=== PATIENT | male | born 1960 | race African-American/Black ===

== ENCOUNTER 2016-05-27 17:16 | Inpatient (IN) | payer OTHER, MEDICARE ==
[~2016-05-27] VITALS: Ht 190.5 cm; Wt 90.0 kg
[~2016-05-27 17:16] MED LIST: AMLO10TA2 PO; ASPI325T PO; ATOR10TA15 PO; BETH25 PO; CALC667C; CARV3.12 PO; COZA50TA PO; EPOG1000 IV; FURO40TA PO; NOVORP2 SQ; [UNRECOGNIZED DRUG - CODE] IV
[2016-05-27 17:18] VITALS: BP 113/71; PULSE 132; RESP 12; TEMP 98.1; O2SAT 97
--- NOTE | 2016-05-27 19:35 | PD ---
HPI Chief Complaint: Wound/Suture/Staple Re-Check Time Seen by Provider: 19:35 Travel History International Travel<30 days: No Contact w/Intl Traveler<30days: No Traveled to known affect area: No History of Present Illness HPI 56-year-old male with history of CAD, hypertension, diabetes, ESRD on dialysis presents to emergency department for evaluation of possible infection. Patient has the toes of his right foot amputated. He also has a left BKA. States he has been dealing with a wound on the right foot for extended amount of time. Health care nurse comes and sees it. He believes that it is getting better. Today during dialysis he states that he started feeling febrile and chilled. He states the nurse looked in his foot and felt that he may be septic from the infection on his foot. Patient denies chest pain or tightness. He has had no other recent illnesses, fever, or chills. Has no other symptoms to report at this time. PFSH Past Medical History Hx Anticoagulant Therapy: Yes Arthritis: No Asthma: No Autoimmune Disease: No Blood Disorders: No Anxiety: No Depression: No Heart Rhythm Problems: No Cancer: No Cardiovascular Problems: Yes High Cholesterol: Yes Chemotherapy: No Chest Pain: No Congestive Heart Failure: No COPD: No Cerebrovascular Accident: No Dementia: No Diabetes: Yes Diminished Hearing: No Endocrine: Yes Gastrointestinal Disorders: Yes (CONSTIPATION RELATED TO MEDICATION) GERD: No Glaucoma: No Genitourinary: Yes Headaches: Yes Hepatitis: No Hiatal Hernia: No Hypertension: Yes Immune Disorder: No Implanted Vascular Access Dvce: Yes (dialysis port) Kidney Stones: No Musculoskeletal: No Neurologic: No Psychiatric: No Reproductive: No Respiratory: No Immunizations Current: No Migraines: No Myocardial Infarction: No Radiation Therapy: No Renal Failure: No Seizures: No Sickle Cell Disease: No Sleep Apnea: No Thyroid Disease: No Ulcer: No Past Surgical History Abdominal Surgery: No AICD: No Appendectomy: No Arteriovenous Shunt: No Body Medical Devices: VASCATH Cardiac Surgery: No Cholecystectomy: No Ear Surgery: No Endocrine Surgery: No Eye Surgery: Yes (LEFT AND RIGHT LENS IMPLANTS [id number] PATIENT NOT SURE) Genitourinary Surgery: No Gynecologic Surgery: No Insulin Pump: No Joint Replacement: No Oral Surgery: No Pacemaker: No Thoracic Surgery: No Other Surgery: Yes (vein reconstruction left leg) Social History Alcohol Use: No Tobacco Use: No Substance Use: No Allergies-Medications (Allergen,Severity, Reaction): Coded Allergies: *MDRO Multi-Drug Resistant Organism (Verified Adverse Reaction, Unknown, ) MRSA PCR Screens NEGATIVE - 08/23/15 and 08/26/15 CLEARED PER INFECTION CONTROL Uncoded Allergies: Tradjenta (Adverse Reaction, Severe, Burning, 08/30/15) Pt reports that after taking the medication for 2-3 days he developed severe and pain full blisters on both lower legs. Reported Meds & Prescriptions Reported Meds & Active Scripts Active Reported Aspirin 325 Mg Tab 325 Mg PO DAILY Atorvastatin (Atorvastatin Calcium) 10 Mg Tab 10 Mg PO HS Calcium Acetate (Calcium Acetate (Phosphate Bin) 667 Mg Cap 667 Mg TID Cefazolin Inj (Cefazolin Sodium) 2 Gm/100 Ml Bagp Gm IV DAILY PRN Epogen Inj (Epoetin Dorian) 10,000 Unit/Ml Inj 10,000 IV Furosemide 40 Mg Tab 40 Mg PO DAILY Novolin R Inj (Insulin Human Regular) 1,000 Unit/10 Ml Vial 1-9 Units SQ TIDACHS Max dose at bedtime:( )units; sugars less than 70,(0) units; sugars 150-199,(1)unit; sugars 200-249,(3)units; sugars 250-299,(5) units; sugars 300-349,(7)units; sugars greater than 349,(9)units Urecholine (Bethanechol Chloride) 25 Mg Tab 25 Mg PO Q8HR Review of Systems Except as stated in HPI: all other systems reviewed are Neg Physical Exam Narrative GENERAL: Well-nourished male patient in no acute distress SKIN: Warm and dry. Multiple healed wounds on the lower extremity. On the plantar surface of the right foot there is a 3 cm in diameter hardened calloused. On the dorsal aspect of the foot there is a 1 m diameter wound with a small amount of purulent drainage. HEAD: Atraumatic. Normocephalic. EYES: Pupils equal and round. No scleral icterus. No injection or drainage. ENT: No nasal bleeding or discharge. Mucous membranes pink and moist. NECK: Trachea midline. No JVD. CARDIOVASCULAR: Tachycardic rate and rhythm. RESPIRATORY: No accessory muscle use. Clear to auscultation. Breath sounds equal bilaterally. GASTROINTESTINAL: Abdomen soft, non-tender, nondistended. Hepatic and splenic margins not palpable. MUSCULOSKELETAL: No obvious deformities. No clubbing. No cyanosis. No edema. Left BKA, right toes all amputated NEUROLOGICAL: Awake and alert. No obvious cranial nerve deficits. Motor grossly within normal limits. Normal speech. PSYCHIATRIC: Appropriate mood and affect; insight and judgment normal. Data Data Last Documented VS Vital Signs Date Time Temp Pulse Resp B/P Pulse Ox O2 Delivery O2 Flow Rate FiO2 05/27/16 22:20 93 16 127/71 97 05/27/16 17:18 98.1 Room Air Orders Electrocardiogram (05/27/16 19:33) Complete Blood Count With Diff (05/27/16 19:33) Comprehensive Metabolic Panel (05/27/16 19:33) Prothrombin Time / Inr (Pt) (05/27/16 19:33) Act Partial Throm Time (Ptt) (05/27/16 19:33) Lactic Acid Sepsis Protocol (05/27/16 19:33) Ckmb (Isoenzyme) Profile (05/27/16 19:33) Troponin I (05/27/16 19:33) Urinalysis - C+S If Indicated (05/27/16 19:33) Blood Culture (05/27/16 19:33) Chest, Single Ap (05/27/16 19:33) Foot, Complete ([id number]) (05/27/16 ) Wound Culture And Gram Stain (05/27/16 22:01) Piperacil-Tazo 3.375 Gm Premix (Zosyn 3. (05/27/16 22:15) Vancomycin Inj (Vancomycin Inj) (05/27/16 22:15) Sodium Chlor 0.9% 250 Ml Inj (Ns 250 Ml (05/27/16 23:00) Admit Order (Ed Use Only) (05/27/16 23:26) Labs Laboratory Tests Test 05/27/16 05/27/16 19:55 22:15 White Blood Count 10.1 TH/MM3 Red Blood Count 4.22 MIL/MM3 Hemoglobin 11.8 GM/DL Hematocrit 35.7 % Mean Corpuscular Volume 84.7 FL Mean Corpuscular Hemoglobin 27.9 PG Mean Corpuscular Hemoglobin 32.9 % Concent Red Cell Distribution Width 17.9 % Platelet Count 201 TH/MM3 Mean Platelet Volume 8.9 FL Neutrophils (%) (Auto) 88.7 % Lymphocytes (%) (Auto) 5.9 % Monocytes (%) (Auto) 5.1 % Eosinophils (%) (Auto) 0.1 % Basophils (%) (Auto) 0.2 % Neutrophils # (Auto) 8.9 TH/MM3 Lymphocytes # (Auto) 0.6 TH/MM3 Monocytes # (Auto) 0.5 TH/MM3 Eosinophils # (Auto) 0.0 TH/MM3 Basophils # (Auto) 0.0 TH/MM3 CBC Comment DIFF FINAL Differential Comment Prothrombin Time 12.0 SEC Prothromb Time International 1.1 RATIO Ratio Activated Partial 31.2 SEC Thromboplast Time Sodium Level 134 MEQ/L Potassium Level 4.1 MEQ/L Chloride Level 95 MEQ/L Carbon Dioxide Level 25.6 MEQ/L Anion Gap 13 MEQ/L Blood Urea Nitrogen 38 MG/DL Creatinine 7.26 MG/DL Estimat Glomerular Filtration 9 ML/MIN Rate Random Glucose 297 MG/DL Lactic Acid Level 3.8 mmol/L 3.9 mmol/L Calcium Level 9.1 MG/DL Total Bilirubin 0.3 MG/DL Aspartate Amino Transf 7 U/L (AST/SGOT) Alanine Aminotransferase 15 U/L (ALT/SGPT) Alkaline Phosphatase 145 U/L Total Creatine Kinase 61 U/L Troponin I 0.07 NG/ML Total Protein 8.6 GM/DL Albumin 3.1 GM/DL [facility] Medical Decision Making Medical Screen Exam Complete: Yes Emergency Medical Condition: Yes Medical Record Reviewed: Yes Differential Diagnosis Sepsis versus influenza versus electrolyte abnormality versus infected wound Narrative Course 56-year-old male presents to [facility] department for evaluation. Workup is initiated in triage. Once a medical bed becomes available, patient will be transferred and care assumed by that provider. Condition: Stable [place] Rubio May 27, 2016 19:35
[2016-05-27 20:12] LABS: AUTOMATED NEUTROPHIL # 8.9 TH/MM3 (1.8-7.7); BASOPHIL % 0.2 % (0.0-2.0); EOSINOPHIL % 0.1 % (0.0-4.0); HEMATOCRIT 35.7 % (39.0-51.0); HEMO FLAGS DIFF FINAL; LYMPH % 5.9 % (9.0-44.0); LYMPHOCYTE # 0.6 TH/MM3 (1.0-4.8); MEAN CELL VOLUME 84.7 FL (80.0-100.0); MEAN CORPUSCULAR HEMOGLOBIN 27.9 PG (27.0-34.0); MEAN CORPUSCULAR HGB CONC 32.9 % (32.0-36.0); MONO % 5.1 % (0.0-8.0); NEUT % 88.7 % (16.0-70.0); PLATELET COUNT 201 TH/MM3 (150-450); RED BLOOD COUNT 4.22 MIL/MM3 (4.50-5.90); RED CELL DISTRIBUTION WIDTH 17.9 % (11.6-17.2); WHITE BLOOD COUNT 10.1 TH/MM3 (4.0-11.0)
--- NOTE | 2016-05-27 20:19 | RADRPT ---
EXAM DATE/TIME: 05/27/2016 20:15 [facility] COMPARISON: CHEST SINGLE AP, April 25, 2016, 6:16. INDICATIONS : Fever for the past few days. Possible infection of foot. MEDICAL HISTORY : Diabetes mellitus type II. Osteomyelitis, Sepsis, Cellulitis, Renal failure. SURGICAL HISTORY : Vas-cath. ENCOUNTER: Initial ACUITY: 2 days PAIN SCORE: 0/10 LOCATION: Bilateral chest FINDINGS: A single view of the chest demonstrates the lungs to be symmetrically aerated without evidence of mas s, infiltrate or effusion. The cardiomediastinal contours are unremarkable. There is a double lumen catheter in place from the right internal jugular approach with the tip overlying the right atrium. O sseous structures are intact. CONCLUSION: No acute disease. Chad Bajwa MD on May 27, 2016 at 20:17 Board Certified Radiologist. This report was verified electronically.
--- NOTE | 2016-05-27 20:24 | RADRPT ---
EXAM DATE/TIME: 05/27/2016 20:17 [facility] COMPARISON: No previous studies available for comparison. INDICATIONS : Right foot pain. Possible infection. MEDICAL HISTORY : Diabetes mellitus type II. SURGICAL HISTORY : Right amputation. ENCOUNTER: Initial ACUITY: 2 days PAIN SCORE: 5/10 LOCATION: Right Foot. FINDINGS: Three view examination of the right foot demonstrates postoperative change from a midfoot amputation. The bones are osteopenic. There is hypertrophic change at the plantar aponeurosis attachment site at the inferior calcaneus. No focal areas of bony destruction or acute periosteal reaction are seen. CONCLUSION: Disuse osteopenia following midfoot amputation. Chad Bajwa MD on May 27, 2016 at 20:20 Board Certified Radiologist. This report was verified electronically.
[2016-05-27 20:40] LABS: ANION GAP 13 MEQ/L (5-15); AST (GOT) 7 U/L (15-37); BICARBONATE 25.6 MEQ/L (21.0-32.0); BLOOD UREA NITROGEN 38 MG/DL (7-18); CHLORIDE 95 MEQ/L (98-107); GLOMERULAR FILTRATION RATE 9 ML/MIN (>89); POTASSIUM 4.1 MEQ/L (3.5-5.1); SODIUM (NA) 134 MEQ/L (136-145)
[2016-05-27 20:45] LABS: ALKALINE PHOSPHATASE 145 U/L (45-117); ALT (GPT) 15 U/L (12-78); TOTAL BILIRUBIN ADULT 0.3 MG/DL (0.2-1.0)
[2016-05-27 20:47] LABS: CREATINE KINASE 61 U/L (39-308)
[2016-05-27 20:48] LABS: APTT (PATIENT) 31.2 SEC (24.3-30.1); INTERNATIONAL NORMALIZED RATIO 1.1 RATIO
[2016-05-27 21:59] LABS: LACTIC ACID GHOST NOT REPORTABLE
--- NOTE | 2016-05-27 22:10 | PD ---
Physical Exam Narrative General: The patient is a well-developed well-nourished male in no acute distress. Head and Neck exam: Head is normocephalic atraumatic. Eyes: Pupils are equal round and reactive to light. Nose: Midline septum with pink mucous membranes Mouth: Dentition unremarkable. Moist mucus membranes. Posterior oropharynx is not erythematous. No tonsillar hypertrophy. Uvula midline. Airway patent. Neck: No palpable lymphadenopathy. No nuchal rigidity. No thyromegaly. Cardiovascular: Regular rate and rhythm without murmurs, gallops, or rubs. No pulse deficit to the extremities. Lungs: Clear to auscultation bilaterally. No wheezes, rhonchi, or rales. Abdomen: Soft, without tenderness to palpation in all 4 quadrants of the abdomen. No guarding, rebound, or rigidity. Normal bowel sounds are audible. Extremities: No clubbing, cyanosis, or edema. 2+ pulses in bilateral upper extremities. On examination the patient has a brace in place on the right leg. The brace was removed, his she was removed. The patient is noted to have a forefoot amputation that he reports occurred at 2009. The area of drainage is on the dorsal aspect of the foot. There is a yellow drainage that is able to be expressed. This was cultured. There is some tenderness surrounding this area with minimal erythema and edema. The patient on the sole of the foot is also noted to have an area of callus formation. There is no drainage from that site. The patient's left leg is noted to have a [id number] amputation. The stump appears to be in good repair without any drainage or wound. No tenderness on palpation. Back: No spinous process tenderness to palpation. No costovertebral angle tenderness to palpation. Neurologic Exam: Grossly nonfocal. Data Data Last Documented VS Vital Signs Date Time Temp Pulse Resp B/P Pulse Ox O2 Delivery O2 Flow Rate FiO2 05/27/16 22:20 93 16 127/71 97 05/27/16 17:18 98.1 Room Air Orders Electrocardiogram (05/27/16 19:33) Complete Blood Count With Diff (05/27/16 19:33) Comprehensive Metabolic Panel (05/27/16 19:33) Prothrombin Time / Inr (Pt) (05/27/16 19:33) Act Partial Throm Time (Ptt) (05/27/16 19:33) Lactic Acid Sepsis Protocol (05/27/16 19:33) Ckmb (Isoenzyme) Profile (05/27/16 19:33) Troponin I (05/27/16 19:33) Urinalysis - C+S If Indicated (05/27/16 19:33) Blood Culture (05/27/16 19:33) Chest, Single Ap (05/27/16 19:33) Foot, Complete ([id number]) (05/27/16 ) Wound Culture And Gram Stain (05/27/16 22:01) Piperacil-Tazo 3.375 Gm Premix (Zosyn 3. (05/27/16 22:15) Vancomycin Inj (Vancomycin Inj) (05/27/16 22:15) Sodium Chlor 0.9% 250 Ml Inj (Ns 250 Ml (05/27/16 23:00) Admit Order (Ed Use Only) (05/27/16 23:26) Labs Laboratory Tests Test 05/27/16 05/27/16 19:55 22:15 White Blood Count 10.1 TH/MM3 Red Blood Count 4.22 MIL/MM3 Hemoglobin 11.8 GM/DL Hematocrit 35.7 % Mean Corpuscular Volume 84.7 FL Mean Corpuscular Hemoglobin 27.9 PG Mean Corpuscular Hemoglobin 32.9 % Concent Red Cell Distribution Width 17.9 % Platelet Count 201 TH/MM3 Mean Platelet Volume 8.9 FL Neutrophils (%) (Auto) 88.7 % Lymphocytes (%) (Auto) 5.9 % Monocytes (%) (Auto) 5.1 % Eosinophils (%) (Auto) 0.1 % Basophils (%) (Auto) 0.2 % Neutrophils # (Auto) 8.9 TH/MM3 Lymphocytes # (Auto) 0.6 TH/MM3 Monocytes # (Auto) 0.5 TH/MM3 Eosinophils # (Auto) 0.0 TH/MM3 Basophils # (Auto) 0.0 TH/MM3 CBC Comment DIFF FINAL Differential Comment Prothrombin Time 12.0 SEC Prothromb Time International 1.1 RATIO Ratio Activated Partial 31.2 SEC Thromboplast Time Sodium Level 134 MEQ/L Potassium Level 4.1 MEQ/L Chloride Level 95 MEQ/L Carbon Dioxide Level 25.6 MEQ/L Anion Gap 13 MEQ/L Blood Urea Nitrogen 38 MG/DL Creatinine 7.26 MG/DL Estimat Glomerular Filtration 9 ML/MIN Rate Random Glucose 297 MG/DL Lactic Acid Level 3.8 mmol/L 3.9 mmol/L Calcium Level 9.1 MG/DL Total Bilirubin 0.3 MG/DL Aspartate Amino Transf 7 U/L (AST/SGOT) Alanine Aminotransferase 15 U/L (ALT/SGPT) Alkaline Phosphatase 145 U/L Total Creatine Kinase 61 U/L Troponin I 0.07 NG/ML Total Protein 8.6 GM/DL Albumin 3.1 GM/DL [facility] Medical Record Reviewed: Yes Supervised Visit with [place]: No Interpretation(s) Last Impressions Chest X-Ray 05/27/16 1933 Signed Impressions: Service Date/Time: Friday, May 27, 2016 20:15 - CONCLUSION: No acute disease. Chad Bajwa MD Foot X-Ray 05/27/16 0000 Signed Impressions: Service Date/Time: Friday, May 27, 2016 20:17 - CONCLUSION: Disuse osteopenia following midfoot amputation. Chad Bajwa MD Narrative Course During the course of the patients emergency department visit, the patients history, examination, and differential diagnosis were reviewed with the patient. The patient had IV access obtained and blood work sent for analysis. The patient was placed on a credit reporting clerk with oximetry and blood pressure monitoring. An EKG was done on arrival back to the room. The patient has a sinus rhythm of 99, marked right axis deviation, right bundle branch block. The patient prior to arriving back in the emergency department room was evaluated out in triage by [place], the nurse practitioner. Please see her complete history and physical. A workup was started for possible sepsis as the patient had subjective fever, chills at his usual hemodialysis session with new onset of purulent drainage from her right foot wound. The patient was provided Zosyn and vancomycin. The patient was given 250 mL IV fluid bolus. The patient was judiciously hydrated given his history of renal failure, on hemodialysis. The patients laboratory studies were reviewed and remarkable for a white count of 10.1, hemoglobin 11.8, platelets 201 with 88.7 neutrophils, lymphocytes 5.9. , CMP is remarkable for sodium of 134, chloride 95, BUN 38, creatinine 7.26, glucose 297 with a lactic acid of 3.8, ALT 15, AST 7, alkaline phosphatase 145, CPK 61, troponin I 0.07-elevation is likely related to renal insufficiency. PT 12, PTT 31.2 Radiology studies were reviewed and remarkable for a chest x-ray that shows no acute cardiopulmonary disease. A foot x-ray shows disuse osteopenia hollowing midfoot amputation. The patients results were discussed with the patient, including the plan of care. I explained that further testing and/ or monitoring is indicated based on the patients history, examination, and/ or laboratory findings. Therefore, I recommended admission for additional evaluation. The patient expressed understanding and was agreeable with this plan. The patient was admitted to the hospital in stable condition and [facility] Sepsis Criteria SIRS Criteria (2 or more): Heart rate over 90 Physician Communication Physician Communication The patient's case was discussed with Dr. Mckee who did agree to admit the patient for further evaluation and treatment at this time. Diagnosis Primary Impression: Wound infection Admitting Information Admitting Physician Requests: Observation Condition: Stable Ruby Falcon MD May 27, 2016 22:10
[2016-05-27] MEDS ORDERED: PIPERACIL-TAZO 3.375 GM PREMIX 50 ML IV ONE (22:15)
[2016-05-27] MEDS ORDERED: VANCOMYCIN INJ 1,000 MG in SODIUM CHLOR 0.9% 250 ML INJ 250 ML IV ONE (22:15)
[2016-05-27 22:20] VITALS: BP 127/71; PULSE 93; RESP 16; O2SAT 97
[2016-05-27] MEDS ORDERED: SODIUM CHLOR 0.9% 250 ML INJ 250 ML IV ONE (23:00)
[2016-05-27] MEDS ORDERED: DEXTROSE 50% IN WATER 50 ML VIAL(D50) IV PUSH PRN (23:30)
[2016-05-27] MEDS ORDERED: SODIUM CHLORIDE 0.9% FLUSH 5 ML FLUSH FLUSH PRN (23:30)
[2016-05-27] MEDS ORDERED: NALOXONE HCL 0.4 MG/ML AMP IV PRN (23:30)
[2016-05-27] MEDS ORDERED: GLUCAGON 1 MG/ML VIAL OTHER PRN (23:30)
[2016-05-27] MEDS ORDERED: CALCIUM ACETATE 667 MG CAP PO ONE (23:45)
[2016-05-28] VITALS (11 sets, daily range): BP systolic 100–135; BP diastolic 51–62; PULSE 68–84; RESP 14–22; TEMP 97.9–98.1; O2SAT 95–98
--- NOTE | 2016-05-28 01:55 | HHI.HP ---
[facility]Staff Admission Diagnosis right foot infection Diagnoses: Chief Complaint: right food drainage Travel History International Travel<30 Days: No Contact w/Intl Traveler <30 Da: No Traveled to Known Affected Are: No History of Present Illness History taken from patient and ED physician. 56-year-old male with a history of diabetes, hypertension, end-stage renal disease, PVD and CAD was sent to the ED from Dialysis for evaluation of a right foot wound infection. Patient states he was at dialysis today and he began to have fevers and chills. He has been seeing a wound care nurse for the wound on top on his right foot from a partial foot amputation. He is now having foul smelling drainage from the top of the right foot, cultures have been sent. He denies any chest pain, sob, nausea or vomiting. Review of Systems Constitutional: COMPLAINS OF: Fever, Chills Respiratory: DENIES: Sputum production, Shortness of breath Cardiovascular: DENIES: Chest pain, Lower Extremity Edema, Orthopnea Gastrointestinal: DENIES: Abdominal pain, Constipation, Diarrhea, Nausea, Vomiting Genitourinary: DENIES: Hematuria, Dysuria Musculoskeletal: DENIES: Joint pain, Back pain, Neck pain Integumentary: DENIES: Rash Hematologic/lymphatic: DENIES: Lymphadenopathy Immunologic/allergic: DENIES: Urticaria Neurologic: DENIES: Headache Other wound drainage from top of right foot Past Family Social History Past Medical History Hypertension DM PAD coronary artery disease congestive heart failure End-stage renal disease on hemodialysis Past Surgical History LBKA Amputated right toes left and right lens implants and bilateral eyes Implanted vascular device for hemodialysis Right AV fistula Reported Medications Reported Meds & Active Scripts Active Reported Aspirin 325 Mg Tab 325 Mg PO DAILY Atorvastatin (Atorvastatin Calcium) 10 Mg Tab 10 Mg PO HS Calcium Acetate (Calcium Acetate (Phosphate Bin) 667 Mg Cap 667 Mg TID Cefazolin Inj (Cefazolin Sodium) 2 Gm/100 Ml Bagp Gm IV DAILY PRN Epogen Inj (Epoetin Dorian) 10,000 Unit/Ml Inj 10,000 IV Furosemide 40 Mg Tab 40 Mg PO DAILY Novolin R Inj (Insulin Human Regular) 1,000 Unit/10 Ml Vial 1-9 Units SQ TIDACHS Max dose at bedtime:( )units; sugars less than 70,(0) units; sugars 150-199,(1)unit; sugars 200-249,(3)units; sugars 250-299,(5) units; sugars 300-349,(7)units; sugars greater than 349,(9)units Urecholine (Bethanechol Chloride) 25 Mg Tab 25 Mg PO Q8HR Allergies: Coded Allergies: *MDRO Multi-Drug Resistant Organism (Verified Adverse Reaction, Unknown, ) MRSA PCR Screens NEGATIVE - 08/23/15 and 08/26/15 CLEARED PER INFECTION CONTROL Uncoded Allergies: Tradjenta (Adverse Reaction, Severe, Burning, 08/30/15) Pt reports that after taking the medication for 2-3 days he developed severe and pain full blisters on both lower legs. Active Ordered Medications Current Medications Medications (Trade) Dose Ordered Sig/Maribell Route Start Time Stop Time Status Last Admin (NS Flush) 2 ml UNSCH PRN FLUSH 05/27/16 23:30 (NS Flush) 2 ml BID FLUSH 05/28/16 09:00 (Heparin Inj) 5,000 units Q8H SQ 05/28/16 09:00 (Narcan Inj) 0.4 mg UNSCH PRN IV 05/27/16 23:30 (D50w (Vial) Inj) 25 ml UNSCH PRN IV PUSH 05/27/16 23:30 Glucagon 1 mg 1 mg UNSCH PRN OTHER 05/27/16 23:30 (Zosyn 3.375 Gm Premix) 50 ml @ 100 mls/hr Q8H IV 05/28/16 08:00 Family History Patient denies any family history Social History Tobacco use: Quit September 2015 Alcohol use: Denies Illicit drug use: Denies Physical Exam Vital Signs Vital Signs Date Time Temp Pulse Resp B/P Pulse Ox O2 Delivery O2 Flow Rate FiO2 05/27/16 22:20 93 16 127/71 97 05/27/16 17:18 98.1 132 12 113/71 97 Room Air Physical Exam GENERAL: This is a well-nourished, well-developed patient, in no apparent distress. SKIN: Dime size wound to top of right foot with foul smelling drainage. HEAD: Atraumatic. Normocephalic. EYES: Pupils equal round and reactive. ENT: Nose without bleeding, purulent drainage or septal hematoma. Airway patent. NECK: Trachea midline. No JVD CARDIOVASCULAR: Regular rate and rhythm without murmurs, gallops, or rubs. RESPIRATORY: Clear to auscultation. Breath sounds equal bilaterally. No wheezes , rales, or rhonchi. GASTROINTESTINAL: Abdomen soft, non-tender, nondistended. No hepato-splenomegaly , or palpable masses. No guarding. MUSCULOSKELETAL: Extremities without clubbing, cyanosis, or edema. No joint tenderness, effusion, or edema noted. No calf tenderness. NEUROLOGICAL: Awake and alert. Motor and sensory grossly within normal limits. Normal speech. Laboratory Laboratory Tests Test 05/27/16 05/27/16 19:55 22:15 White Blood Count 10.1 Red Blood Count 4.22 Hemoglobin 11.8 Hematocrit 35.7 Mean Corpuscular Volume 84.7 Mean Corpuscular Hemoglobin 27.9 Mean Corpuscular Hemoglobin 32.9 Concent Red Cell Distribution Width 17.9 Platelet Count 201 Mean Platelet Volume 8.9 Neutrophils (%) (Auto) 88.7 Lymphocytes (%) (Auto) 5.9 Monocytes (%) (Auto) 5.1 Eosinophils (%) (Auto) 0.1 Basophils (%) (Auto) 0.2 Neutrophils # (Auto) 8.9 Lymphocytes # (Auto) 0.6 Monocytes # (Auto) 0.5 Eosinophils # (Auto) 0.0 Basophils # (Auto) 0.0 CBC Comment DIFF FINAL Differential Comment Prothrombin Time 12.0 Prothromb Time International 1.1 Ratio Activated Partial 31.2 Thromboplast Time Sodium Level 134 Potassium Level 4.1 Chloride Level 95 Carbon Dioxide Level 25.6 Anion Gap 13 Blood Urea Nitrogen 38 Creatinine 7.26 Estimat Glomerular Filtration 9 Rate Random Glucose 297 Lactic Acid Level 3.8 3.9 Calcium Level 9.1 Total Bilirubin 0.3 Aspartate Amino Transf 7 (AST/SGOT) Alanine Aminotransferase 15 (ALT/SGPT) Alkaline Phosphatase 145 Total Creatine Kinase 61 Troponin I 0.07 Total Protein 8.6 Albumin 3.1 Date/Time Procedure Status Source Growth 05/27/16 22:00 Gram Stain Received Wound Foot Pending 05/27/16 22:00 Wound Culture Received Wound Foot Pending 05/27/16 19:56 Aerobic Blood Culture Received Blood Peripheral Pending 05/27/16 19:56 Anaerobic Blood Culture Received Blood Peripheral Pending Result Diagram: 05/27/16195405/27/161954 Imaging Last Impressions Chest X-Ray 05/27/161932 Signed Impressions: Service Date/Time: Friday, May 27, 2016 20:15 - CONCLUSION: No acute disease. Chad Bajwa MD Foot X-Ray 05/27/16 0000 Signed Impressions: Service Date/Time: Friday, May 27, 2016 20:17 - CONCLUSION: Disuse osteopenia following midfoot amputation. Chad Bajwa MD Assessment and Plan Problem List: (1) Wound infection ICD Code: T14.8 Status: Acute (2) DM2 (diabetes mellitus, type 2) ICD Code: E11.9 Status: Chronic (3) End-stage renal disease needing dialysis ICD Code: N18.6 Status: Acute Assessment and Plan 56-year-old male with a history of diabetes, hypertension, end-stage renal disease, PVD and CAD presented with: Wound infection, right foot Images: Foot xray shows Disuse osteopenia following midfoot amputation. -Wound and blood culture pending -Zosyn IV, vanco dosing per nephrology Diabetes type 2, chronic -Accu-Cheks AC/HS w/SSI ESRD, on dialysis -Consult nephrology DVT prophylaxis: Heparin Written by Michelle BILLY, acting as scribe for Dr. Mckee on 05/28/16 at 0335. The documentation accurately reflects the work performed [id number] and decisions made by me and the physician Dr Mckee on 05/28/16. The documentation accurately reflects the work performed [id number] by me on at 0335 Discussed Condition With Patient and ED physician Physician Certification 2 Midnight Certification Type: Admission for Inpatient Services Order for Inpatient Services The services are ordered in accordance with Medicare regulations or non- Medicare payer requirements, as applicable. In the case of services not specified as inpatient-only, they are appropriately provided as inpatient services in accordance with the 2-midnight benchmark. Estimated LOS (days): 3 days is the estimated time the patient will need to remain in the hospital, assuming treatment plan goals are met and no additional complications. Post-Hospital Plan: Home Michelle Acosta May 28, 2016 01:55 Finesse Mckee MD May 28, 2016 08:35
[2016-05-28] MEDS ORDERED: PIPERACIL-TAZO 4.5 GM PREMIX 100 ML IV SCH (04:00)
[2016-05-28 05:06] LABS: AUTOMATED NEUTROPHIL # 8.6 TH/MM3 (1.8-7.7); BASOPHIL # 0.1 TH/MM3 (0-0.2); BASOPHIL % 0.5 % (0.0-2.0); EOSINOPHIL % 0.2 % (0.0-4.0); LYMPH % 16.4 % (9.0-44.0); LYMPHOCYTE # 1.9 TH/MM3 (1.0-4.8); MEAN CELL VOLUME 85.8 FL (80.0-100.0); MEAN CORPUSCULAR HEMOGLOBIN 27.1 PG (27.0-34.0); MEAN CORPUSCULAR HGB CONC 31.6 % (32.0-36.0); MONO % 9.8 % (0.0-8.0); NEUT % 73.1 % (16.0-70.0); PLATELET COUNT 197 TH/MM3 (150-450); RED BLOOD COUNT 3.96 MIL/MM3 (4.50-5.90); RED CELL DISTRIBUTION WIDTH 18.3 % (11.6-17.2); WHITE BLOOD COUNT 11.8 TH/MM3 (4.0-11.0)
[2016-05-28 05:07] LABS: HEMO FLAGS AUTO DIFF
[2016-05-28 05:31] LABS: POTASSIUM 4.3 MEQ/L (3.5-5.1)
[2016-05-28] MEDS: INSULIN ASPART SUPPLEMENTAL SCALE SQ SCH ×4 (07:00→21:00)
[2016-05-28 07:06] LABS: KERATOCYTES OCC (NORMAL); PLATELET ESTIMATE SMEAR NORMAL (NORMAL); PLATELET MORPHOLOGY NORMAL (NORMAL); SCAN/DIFF AUTO DIFF CONFIRMED
[2016-05-28] MEDS: HEPARIN SODIUM - SQ 10,000 UNITS/ML VIAL SQ SCH ×2 (08:31→18:07)
[2016-05-28] MEDS: SODIUM CHLORIDE 0.9% FLUSH 5 ML FLUSH FLUSH SCH ×2 (08:32→21:00)
[2016-05-28] MEDS: PIPERACIL-TAZO 3.375 GM PREMIX 50 ML IV SCH ×3 (08:32→23:24)
[2016-05-28] MEDS ORDERED: SODIUM CHLOR 0.9% 1000 ML INJ 1,000 ML IV PRN ×3 (09:34)
[2016-05-28] MEDS ORDERED: HEPARIN SODIUM - IV 10,000 UNITS/10 ML VIAL IVF PRN (09:45)
[2016-05-28] MEDS ORDERED: cloNIDine HCL 0.1 MG TAB PO PRN (09:45)
[2016-05-28] MEDS ORDERED: GELATIN 12 MM/7 MM FOAM TOP PRN (09:45)
[2016-05-28] MEDS ORDERED: ONDANSETRON HCL 4 MG/2 ML VIAL IV PRN (09:45)
[2016-05-28] MEDS ORDERED: MANNITOL 12.5 GM/50 ML VIAL IV PRN (09:45)
[2016-05-28] MEDS ORDERED: GENTAMICIN SULFATE (DIALYSIS USE ONLY) 20 MG/2 ML VIAL IV PRN (09:45)
[2016-05-28] MEDS ORDERED: EPOETIN ALFA 10,000 UNITS/ML VIAL IV PRN (09:45)
[2016-05-28] MEDS ORDERED: NITROGLYCERIN 0.4 MG SL 25 TABS/BTL SL PRN (09:45)
[2016-05-28] MEDS ORDERED: HEPARIN SODIUM - IV 10,000 UNITS/10 ML VIAL PRN (09:45)
[2016-05-28] MEDS ORDERED: SODIUM CHLORIDE 0.9% FLUSH 5 ML FLUSH IVF PRN (09:45)
[2016-05-28] MEDS ORDERED: ALBUMIN HUMAN 25% 25 GM/100 ML BAGP IV PRN (09:45)
[2016-05-28] MEDS ORDERED: diphenhydrAMINE HCL 25 MG CAP PO PRN (09:45)
[2016-05-28] MEDS ORDERED: ACETAMINOPHEN 325 MG TAB PO PRN (09:45)
--- NOTE | 2016-05-28 12:11 | PD.CONS ---
HPI Service Nephrology Consult Requested By Reason for Consult ESRD on HD Primary Care Physician Non-Staff History of Present Illness This is a dialysis pt followed by Dr. Membreno. He dialyzes T-Th-Sat, had full treatment yesterday. Other PMH of HTN, DM, anemia, and CAD. He has left BKA and right midfoot amputation due to severe PVD. He has noticed wound on top of right midfoot that has had drainage and foul odor, had developed fever/chills at dialysis and was sent in. He is in no distress. Metabolic profile was unremarkable. We were consulted for renal management. (Breanne Brown) Review of Systems Constitutional: COMPLAINS OF: Fatigue, Fever, Chills Integumentary: COMPLAINS OF: Rash (Breanne Brown) Past Family Social History Allergies: Coded Allergies: *MDRO Multi-Drug Resistant Organism (Verified Adverse Reaction, Unknown, ) MRSA PCR Screens NEGATIVE - 08/23/15 and 08/26/15 CLEARED PER INFECTION CONTROL PROTOCOL Uncoded Allergies: Tradjenta (Adverse Reaction, Severe, Burning, 08/30/15) Pt reports that after taking the medication for 2-3 days he developed severe and pain full blisters on both lower legs. Past Medical History Hypertension DM PAD coronary artery disease congestive heart failure End-stage renal disease on hemodialysis Past Surgical History L BKA right midfoot amputation left and right lens implants and bilateral eyes permcath right side Right AV fistula Reported Medications Aspirin 325 Mg Tab 325 Mg PO DAILY Atorvastatin (Atorvastatin Calcium) 10 Mg Tab 10 Mg PO HS Calcium Acetate (Calcium Acetate (Phosphate Bin) 667 Mg Cap 667 Mg TID Cefazolin Inj (Cefazolin Sodium) 2 Gm/100 Ml Bagp Gm IV DAILY PRN Epogen Inj (Epoetin Dorian) 10,000 Unit/Ml Inj 10,000 IV Furosemide 40 Mg Tab 40 Mg PO DAILY Novolin R Inj (Insulin Human Regular) 1,000 Unit/10 Ml Vial 1-9 Units SQ TIDACHS Max dose at bedtime:( )units; sugars less than 70,(0) units; sugars 150-199,(1)unit; sugars 200-249,(3)units; sugars 250-299,(5) units; sugars 300-349,(7)units; sugars greater than 349,(9)units Urecholine (Bethanechol Chloride) 25 Mg Tab 25 Mg PO Active Ordered Medications Current Medications Medications (Trade) Dose Ordered Sig/Maribell Route Start Time Stop Time Status Last Admin (NS Flush) 2 ml UNSCH PRN FLUSH 05/27/16 23:30 (NS Flush) 2 ml BID FLUSH 05/28/16 09:00 05/28/16 08:32 (Heparin Inj) 5,000 units Q8H SQ 05/28/16 09:00 05/28/16 08:31 (Narcan Inj) 0.4 mg UNSCH PRN IV 05/27/16 23:30 (D50w (Vial) Inj) 25 ml UNSCH PRN IV PUSH 05/27/16 23:30 Glucagon 1 mg 1 mg UNSCH PRN OTHER 05/27/16 23:30 Piperacillin Sod/ Tazobactam Sod 50 ml @ 100 mls/hr Q8H IV 05/28/16 08:00 05/28/16 08:32 (NS 1000 ml Inj) 1,000 ml @ 0 mls/hr Q0M PRN IV 05/28/16 09:34 Heparin Sodium (Porcine) 8000 units 8,000 units UNSCH PRN IVF 05/28/16 09:45 Sodium Chloride 1,000 ml @ 200 mls/hr Q5H PRN IV 05/28/16 09:34 (NS 1000 ml Inj) 1,000 ml @ 0 mls/hr Q0M PRN IV 05/28/16 09:34 (Mannitol Inj) 12.5 gm UNSCH PRN IV 05/28/16 09:45 (Albumin 25% Inj) 25 gm UNSCH PRN IV 05/28/16 09:45 (NS Flush) 5 ml UNSCH PRN IVF 05/28/16 09:45 (Heparin Inj) UNSCH PRN .XX 05/28/16 09:45 (Gentamicin (Dialysis) Inj) 20 mg UNSCH PRN IV 05/28/16 09:45 (Zofran Inj) 4 mg UNSCH PRN IV 05/28/16 09:45 (Tylenol) 650 mg UNSCH PRN PO 05/28/16 09:45 (Benadryl) 25 mg UNSCH PRN PO 05/28/16 09:45 (Nitrostat Sl) 0.4 mg UNSCH PRN SL 05/28/16 09:45 (Catapres) 0.1 mg UNSCH PRN PO 05/28/16 09:45 (Epogen Inj) 10,000 units UNSCH PRN IV 05/28/16 09:45 (Gelfoam 12 Mm/7 Mm Top) 1 foam UNSCH PRN TOP 05/28/16 09:45 Family History No hx of renal disorders Social History , lives locally unemployed, disabled former smoker Quit September 2015 no ETOH or drug use full code (Breanne Brown) Physical Exam Vital Signs Vital Signs Date Time Temp Pulse Resp B/P Pulse Ox O2 Delivery O2 Flow Rate FiO2 05/28/16 09:00 68 16 05/28/16 08:00 68 15 115/56 95 Room Air 05/28/16 04:38 79 20 120/60 98 05/28/16 03:00 71 16 135/62 96 Room Air 05/27/16 22:20 93 16 127/71 97 05/27/16 17:18 98.1 132 12 113/71 97 Room Air Physical Exam Middle aged AAM sitting up in bed permcath right chest AVF right arm, + thrill/ bruit Lungs; clear in all silva CV: S1/S2, regular without murmurs Ext: left BKA, right midfoot; small wound top of right foot, crusted top, no drainage skin with scattered areas look like old scars Laboratory Laboratory Tests Test 05/27/16 05/27/16 05/28/16 19:55 22:15 04:39 White Blood Count 10.1 11.8 Red Blood Count 4.22 3.96 Hemoglobin 11.8 10.7 Hematocrit 35.7 34.0 Mean Corpuscular Volume 84.7 85.8 Mean Corpuscular Hemoglobin 27.9 27.1 Mean Corpuscular Hemoglobin 32.9 31.6 Concent Red Cell Distribution Width 17.9 18.3 Platelet Count 201 197 Mean Platelet Volume 8.9 8.6 Neutrophils (%) (Auto) 88.7 73.1 Lymphocytes (%) (Auto) 5.9 16.4 Monocytes (%) (Auto) 5.1 9.8 Eosinophils (%) (Auto) 0.1 0.2 Basophils (%) (Auto) 0.2 0.5 Neutrophils # (Auto) 8.9 8.6 Lymphocytes # (Auto) 0.6 1.9 Monocytes # (Auto) 0.5 1.2 Eosinophils # (Auto) 0.0 0.0 Basophils # (Auto) 0.0 0.1 CBC Comment DIFF FINAL AUTO DIFF Differential Comment AUTO DIFF CONFIRMED Prothrombin Time 12.0 Prothromb Time International 1.1 Ratio Activated Partial 31.2 Thromboplast Time Sodium Level 134 135 Potassium Level 4.1 4.3 Chloride Level 95 100 Carbon Dioxide Level 25.6 27.0 Anion Gap 13 8 Blood Urea Nitrogen 38 49 Creatinine 7.26 8.22 Estimat Glomerular Filtration 9 8 Rate Random Glucose 297 133 Lactic Acid Level 3.8 3.9 Calcium Level 9.1 9.0 Total Bilirubin 0.3 Aspartate Amino Transf 7 (AST/SGOT) Alanine Aminotransferase 15 (ALT/SGPT) Alkaline Phosphatase 145 Total Creatine Kinase 61 Troponin I 0.07 Total Protein 8.6 Albumin 3.1 Platelet Estimate NORMAL Platelet Morphology Comment NORMAL Keratocytes OCC Date/Time Procedure Status Source Growth 05/27/16 22:00 Gram Stain - Final Resulted Wound Foot 05/27/16 22:00 Wound Culture Resulted Wound Foot Pending 05/27/16 19:56 Aerobic Blood Culture - Preliminary Resulted Blood Peripheral NO GROWTH IN 1 DAY 05/27/16 19:56 Anaerobic Blood Culture - Preliminary Resulted Blood Peripheral NO GROWTH IN 1 DAY (Breanne Brown) Result Diagram: 05/28/16 0439 05/28/16 0439 Imaging Last 72 hours Impressions Chest X-Ray 05/27/16 1933 Signed Impressions: Service Date/Time: Friday, May 27, 2016 20:15 - CONCLUSION: No acute disease. Chad Bajwa MD Foot X-Ray 05/27/16 0000 Signed Impressions: Service Date/Time: Friday, May 27, 2016 20:17 - CONCLUSION: Disuse osteopenia following midfoot amputation. Chad Bajwa MD (Breanne Brown) Assessment and Plan Problem List: (1) ESRD (end stage renal disease) on dialysis Plan: he had full dialysis yesterday, no need for repeat today continue T-Th-Sat using permcath for dialysis, AVF has not been used as of yet metabolic profile tomorrow no IVF no dietary protein restriction (2) Wound infection Plan: wound cx in progress placed on zosyn (3) DM2 (diabetes mellitus, type 2) Plan: maintain blood sugar between 140-180 mg/dL (4) Anemia Plan: epogen with dialysis (5) Metabolic bone disease Plan: continue Phoslo, evaluate phosphorus periodically (Breanne Brown) Assessment and Plan patient was seen and examined. Agree with above assessment and plan. Dialysis will be tomorrow. Avoid Gadolinium. Monitor phosphorus. (Juan Pablo Feng MD) Problem Qualifiers (1) DM2 (diabetes mellitus, type 2): Qualified Code: E11.42 - Type 2 diabetes mellitus with diabetic polyneuropathy , with long-term current use of insulin Breanne Brown May 28, 2016 12:11 Juan Pablo Feng MD May 29, 2016 11:00
[2016-05-28] MEDS ORDERED: CALCIUM ACETATE 667 MG CAP PO SCH (13:00)
[2016-05-28] MEDS ORDERED: FUROSEMIDE 40 MG/4 ML VIAL ONE (13:06)
--- NOTE | 2016-05-28 15:53 | EKG ---
Date Performed: 05/27/2016 Time Performed: 21:53:54 PTAGE: 56 years EKG: Sinus rhythm MARKED RIGHT AXIS DEVIATION RIGHT BUNDLE BRANCH BLOCK Compared to prior tracing no significant buchanan e ABNORMAL ECG PREVIOUS TRACING : 04/25/2016 06.46 DOCTOR: Juliana Baez Interpretating Date/Time 05/28/2016 15:53:00
--- NOTE | 2016-05-28 16:55 | PD.POD.CON ---
Patient Intake Chief Complaint Possible diabetic foot ulcer right foot Consult Requested by Reason for Consult Evaluation of lesion on the plantar aspect of the right foot Primary Care Physician Non-Staff History of Present Illness Patient is a 56-year-old well known to myself male who presented with fever and sickness. Patient underwent bilateral transmetatarsal amputations by myself approximately 8-10 years ago. He did eventually developed another infection of the left lower extremity and had an amputation performed. Patient states that he developed an ulceration on the plantar aspect of the right foot and home health has been dressing the wound. Coded Allergies: *MDRO Multi-Drug Resistant Organism (Verified Adverse Reaction, Unknown, ) MRSA PCR Screens NEGATIVE - 08/23/15 and 08/26/15 CLEARED PER INFECTION CONTROL Uncoded Allergies: Tradjenta (Adverse Reaction, Severe, Burning, 08/30/15) Pt reports that after taking the medication for 2-3 days he developed severe and pain full blisters on both lower legs. Preferred Language to Discuss: Hungarian Barriers to Learning: None Teaching Method: Discussion Vital Signs Date Time Temp Pulse Resp B/P Pulse Ox O2 Delivery O2 Flow Rate FiO2 05/28/16 15:21 98.1 73 18 106/59 97 05/28/16 13:00 74 16 100/52 96 Room Air 05/28/16 12:00 68 14 102/51 97 Room Air 05/28/16 11:00 80 22 113/56 98 Room Air 05/28/16 10:52 98 21 05/28/16 10:00 68 19 109/54 98 Room Air 05/28/16 09:00 68 16 05/28/16 09:00 78 22 115/56 96 Room Air 05/28/16 08:00 68 15 115/56 95 Room Air 05/28/16 04:38 79 20 120/60 98 05/28/16 03:00 71 16 135/62 96 Room Air 05/27/16 22:20 93 16 127/71 97 05/27/16 17:18 98.1 132 12 113/71 97 Room Air Pain scale used: 0-10 numeric scale Pain score: 0 Medications Current Medications Piperacillin Sod/ Tazobactam Sod 50 ml @ 100 mls/hr ONCE ONCE IV Last administered on 05/27/16t 23:23; Start 05/27/16 at 22:15; Stop 05/27/16 at 22:44 ; Status DC Vancomycin HCl 1000 mg/Sodium Chloride 250 ml @ 250 mls/hr ONCE ONCE IV Last administered on 05/27/16 22:29; Start 05/27/16 at 22:15; Stop 05/27/16 at 23:14 ; Status DC Sodium Chloride (NS 250 ml Inj) 250 ml @ 250 mls/hr BOLUS ONCE IV Last administered on 05/27/16 23:56; Start 05/27/16 at 23:00; Stop 05/27/16 at 23:59 ; Status DC IV Flush (NS Flush) 2 ml UNSCH PRN FLUSH FLUSH AFTER USING IV ACCESS; Start at 23:30 IV Flush (NS Flush) 2 ml BID FLUSH Last administered on 05/28/16 08:32; Start 05/28/16 at 09:00 Heparin Sodium (Porcine) (Heparin Inj) 5,000 units Q8H SQ Last administered on 05/28/16 08:31; Start 05/28/16 at 09:00 Naloxone HCl (Narcan Inj) 0.4 mg UNSCH PRN IV SEE LABEL COMMENTS; Start at 23:30 Dextrose (D50w (Vial) Inj) 25 ml UNSCH PRN IV PUSH HYPOGLYCEMIA-SEE COMMENTS; Start 05/27/16 at 23:30 Glucagon (Glucagon Inj) 1 mg UNSCH PRN OTHER HYPOGLYCEMIA-SEE COMMENTS; Start 05/27/16 at 23:30 Insulin Aspart 1 1 ACHS SLIDING SCALE SQ ; Start 05/28/16 at 07:00 Piperacillin Sod/ Tazobactam Sod 100 ml @ 200 mls/hr Q6H IV ; Start 05/28/16 at 04:00; Status Cancel Piperacillin Sod/ Tazobactam Sod (Zosyn 3.375 Gm Premix) 50 ml @ 100 mls/hr Q8H IV Last administered on 05/28/16 15:43; Start 05/28/16 at 08:00 Calcium Acetate 1334 mg 1,334 mg ONCE ONCE PO ; Start 05/27/16 at 23:45; Stop 05/27/16 at 23:46; Status DC Sodium Chloride (NS 1000 ml Inj) 1,000 ml @ 0 mls/hr Q0M PRN IV For Prime & Rinse Back; Start 05/28/16 at 09:34 Heparin Sodium (Porcine) 8000 units 8,000 units UNSCH PRN IVF WITH DIALYSIS; Start 05/28/16 at 09:45 Sodium Chloride 1,000 ml @ 200 mls/hr Q5H PRN IV WITH DIALYSIS; Start 05/28/16 at 09:34 Sodium Chloride (NS 1000 ml Inj) 1,000 ml @ 0 mls/hr Q0M PRN IV WITH DIALYSIS; Start 05/28/16 at 09:34 Mannitol (Mannitol Inj) 12.5 gm UNSCH PRN IV WITH DIALYSIS; Start 05/28/16 at 09 :45 Albumin Human (Albumin 25% Inj) 25 gm UNSCH PRN IV WITH DIALYSIS; Start at 09:45 IV Flush (NS Flush) 5 ml UNSCH PRN IVF WITH DIALYSIS; Start 05/28/16 at 09:45 Heparin Sodium (Porcine) (Heparin Inj) UNSCH PRN .XX WITH DIALYSIS; Start 05/28 at 09:45 Gentamicin Sulfate (Gentamicin (Dialysis) Inj) 20 mg UNSCH PRN IV WITH DIALYSIS ; Start 05/28/16 at 09:45 Ondansetron HCl (Zofran Inj) 4 mg UNSCH PRN IV WITH DIALYSIS; Start 05/28/16 at 09:45 Acetaminophen (Tylenol) 650 mg UNSCH PRN PO for headach, pain1-10,T > 101F; Start 05/28/16 at 09:45 Diphenhydramine HCl (Benadryl) 25 mg UNSCH PRN PO for hives/itching/anaphylaxis ; Start 05/28/16 at 09:45 Nitroglycerin (Nitrostat Sl) 0.4 mg UNSCH PRN SL CHEST PAIN; Start 05/28/16 at 09:45 Clonidine (Catapres) 0.1 mg UNSCH PRN PO for BP > 180/100 X 2 readings; Start 05/28/16 at 09:45 Epoetin Dorian (Epogen Inj) 10,000 units UNSCH PRN IV WITH DIALYSIS; Start at 09:45 Gelatin (Gelfoam 12 Mm/7 Mm Top) 1 foam UNSCH PRN TOP SEE LABEL COMMENTS; Start 05/28/16 at 09:45 Calcium Acetate (Phoslo) 667 mg TID PO Last administered on 05/28/16t 13:06; Start 05/28/16 at 13:00; Stop 05/28/16 at 14:49; Status DC Furosemide (Lasix Inj) 40 mg STK-MED ONCE .ROUTE ; Start 05/28/16 at 13:06; Stop 05/28/16 at 13:07; Status DC Calcium Acetate (Phoslo) 1,334 mg TID PO ; Start 05/28/16 at 18:00 Past, Family & Social History Past Medical History Endocrine: REPORTS HX OF: Diabetes mellitus Genitourinary: REPORTS HX OF: Hemodialysis, Kidney failure Past Surgical History Musculoskeletal: REPORTS HX OF: Other musculoskeletal srg (bilateral transmetatarsal amputations) Review of Systems Constitutional: COMPLAINS OF: Fever Neurological: COMPLAINS OF: Numbness/tingling, Changes in sensation Exam-Podiatry Constitutional General appearance: comfortable Nutritional status: normal Orientation: alert and oriented x3 Dermatological Exam Skin Temp - Right: Within Normal Limits Skin Texture - Right: Within Normal Limits Skin Elasticity - Right: Within Normal Limits Skin Tugor - Right: Within Normal Limits Hair Growth - Right: Within Normal Limits Pigmentation - Right: Within Normal Limits Skin Temp - Left: Within Normal Limits Skin Texture - Left: Within Normal Limits Skin Elasticity - Left: Within Normal Limits Skin Tugor - Left: Within Normal Limits Hair Growth - Left: Within Normal Limits Pigmentation - Left: Within Normal Limits Ulcers: Location/Measurements There is an area on the plantar aspect of the right arch which appeared to be in an ulceration. It is covered with hyperkeratotic tissue. The hyperkeratotic tissue peeled off and he has a healed wound underneath. No cellulitis or drainage seen Vascular/Lymphatic Exam R Dorsails Pedis: Palpable L Dorsails Pedis: Palpable R Posterior Tibial: Palpable L Posterior Tibial: Palpable Neurologic Exam Present on right: Tingling, Paraesthesia Present on left: Tingling, Paraesthesia Sensation: Light touch: Absence Pinprick: Absence Proprioception: Absence Vibratory: Absence Monofilament exam: 1st metatarsal head: absent 5th metatarsal head: absent Great toe: absent Musculoskeletal Exam Details Below-knee amputation left, transmetatarsal amputation right foot Wound Assessment Wound Information - Wound One Wound Location: left plantar foot Wound Two Wound Location: right plantar foot Lab and Radiology Results Laboratory Laboratory Tests Test 05/27/16 05/28/16 19:55 04:39 White Blood Count 10.1 TH/MM3 11.8 TH/MM3 Red Blood Count 4.22 MIL/MM3 3.96 MIL/MM3 Hemoglobin 11.8 GM/DL 10.7 GM/DL Hematocrit 35.7 % 34.0 % Mean Corpuscular Volume 84.7 FL 85.8 FL Mean Corpuscular Hemoglobin 27.9 PG 27.1 PG Mean Corpuscular Hemoglobin 32.9 % 31.6 % Concent Red Cell Distribution Width 17.9 % 18.3 % Platelet Count 201 TH/MM3 197 TH/MM3 Mean Platelet Volume 8.9 FL 8.6 FL Neutrophils (%) (Auto) 88.7 % 73.1 % Lymphocytes (%) (Auto) 5.9 % 16.4 % Monocytes (%) (Auto) 5.1 % 9.8 % Eosinophils (%) (Auto) 0.1 % 0.2 % Basophils (%) (Auto) 0.2 % 0.5 % Neutrophils # (Auto) 8.9 TH/MM3 8.6 TH/MM3 Lymphocytes # (Auto) 0.6 TH/MM3 1.9 TH/MM3 Monocytes # (Auto) 0.5 TH/MM3 1.2 TH/MM3 Eosinophils # (Auto) 0.0 TH/MM3 0.0 TH/MM3 Basophils # (Auto) 0.0 TH/MM3 0.1 TH/MM3 CBC Comment DIFF FINAL AUTO DIFF Differential Comment AUTO DIFF CONFIRMED Platelet Estimate NORMAL Platelet Morphology Comment NORMAL Keratocytes OCC Laboratory Tests Test 05/27/16 05/27/16 05/28/16 19:55 22:15 04:39 Sodium Level 134 MEQ/L 135 MEQ/L Potassium Level 4.1 MEQ/L 4.3 MEQ/L Chloride Level 95 MEQ/L 100 MEQ/L Carbon Dioxide Level 25.6 MEQ/L 27.0 MEQ/L Anion Gap 13 MEQ/L 8 MEQ/L Blood Urea Nitrogen 38 MG/DL 49 MG/DL Creatinine 7.26 MG/DL 8.22 MG/DL Estimat Glomerular Filtration 9 ML/MIN 8 ML/MIN Rate Random Glucose 297 MG/DL 133 MG/DL Lactic Acid Level 3.8 mmol/L 3.9 mmol/L Calcium Level 9.1 MG/DL 9.0 MG/DL Total Bilirubin 0.3 MG/DL Aspartate Amino Transf 7 U/L (AST/SGOT) Alanine Aminotransferase 15 U/L (ALT/SGPT) Alkaline Phosphatase 145 U/L Total Creatine Kinase 61 U/L Troponin I 0.07 NG/ML Total Protein 8.6 GM/DL Albumin 3.1 GM/DL Microbiology Date/Time Procedure Status Source Growth 05/27/16 19:50 Aerobic Blood Culture - Preliminary Resulted Blood Peripheral NO GROWTH IN 1 DAY 05/27/16 19:50 Anaerobic Blood Culture - Preliminary Resulted Blood Peripheral NO GROWTH IN 1 DAY 05/27/16 19:56 Aerobic Blood Culture - Preliminary Resulted Blood Peripheral NO GROWTH IN 1 DAY 05/27/16 19:56 Anaerobic Blood Culture - Preliminary Resulted Blood Peripheral NO GROWTH IN 1 DAY 05/27/16 22:00 Gram Stain - Final Resulted Wound Foot 05/27/16 22:00 Wound Culture - Preliminary Resulted Wound Foot NO GROWTH IN 24 HOURS. Radiology Last Impressions Chest X-Ray 05/27/16 1933 Signed Impressions: Service Date/Time: Friday, May 27, 2016 20:15 - CONCLUSION: No acute disease. Chad Bajwa MD Foot X-Ray 05/27/16 0000 Signed Impressions: Service Date/Time: Friday, May 27, 2016 20:17 - CONCLUSION: Disuse osteopenia following midfoot amputation. Chad Bajwa MD Assessment/Plan Problem List: (1) End-stage renal disease needing dialysis Status: Chronic (2) DM2 (diabetes mellitus, type 2) Status: Chronic (3) Diabetic foot ulcer Status: Resolved Additional Plans & Procedures Patient to moisturize the area 2 times a day. He can follow with me as an outpatient when discharged. No need to follow during the course of this admission. Thank you for this consultation Problem Qualifiers (1) DM2 (diabetes mellitus, type 2): Qualified Code: E11.42 - Type 2 diabetes mellitus with diabetic polyneuropathy , with long-term current use of insulin (2) Diabetic foot ulcer: Qualified Code: E11.621 - Diabetic ulcer of right foot associated with type 2 diabetes mellitus Agapito George DPM May 28, 2016 16:55
[2016-05-28] MEDS: CALCIUM ACETATE 667 MG CAP PO SCH (18:06)
[2016-05-29] VITALS (7 sets, daily range): BP systolic 98–121; BP diastolic 55–68; PULSE 73–86; RESP 18–22; TEMP 96.7–98.6; O2SAT 96–99
[2016-05-29] MEDS: HEPARIN SODIUM - SQ 10,000 UNITS/ML VIAL SQ SCH ×3 (00:41→17:08)
[2016-05-29] MEDS: INSULIN ASPART SUPPLEMENTAL SCALE SQ SCH ×4 (05:48→21:00)
--- NOTE | 2016-05-29 08:37 | HHI.PR ---
Subjective Remarks The patient was resting comfortably in bed in awaiting dialysis. He said he felt well. He did not have any further chills. He thinks his dialysis catheter needs to come out and he needs to pursue a fistula. He requested stool softeners. Objective Vitals Vital Signs Date Time Temp Pulse Resp B/P Pulse Ox O2 Delivery O2 Flow Rate FiO2 05/29/16 08:00 97.6 75 18 118/65 98 05/29/16 06:56 21 05/29/16 04:13 98.6 74 20 113/55 97 05/29/16 00:50 97.8 73 20 100/55 97 05/28/16 19:36 97.9 84 20 105/51 97 05/28/16 15:21 98.1 73 18 106/59 97 05/28/16 13:00 74 16 100/52 96 Room Air 05/28/16 12:00 68 14 102/51 97 Room Air 05/28/16 11:00 80 22 113/56 98 Room Air 05/28/16 10:52 98 21 05/28/16 10:00 68 19 109/54 98 Room Air 05/28/16 09:00 68 16 05/28/16 09:00 78 22 115/56 96 Room Air I/O 05/28/16 05/28/16 05/28/16 05/29/16 05/29/16 05/29/16 07:00 15:00 23:00 07:00 15:00 23:00 Intake Total 240 ml Balance 240 ml Intake Oral 240 ml # Voids 1 Result Diagram: 05/28/16 0439 05/28/16 0439 Imaging Last Impressions Chest X-Ray 05/27/16 1933 Signed Impressions: Service Date/Time: Friday, May 27, 2016 20:15 - CONCLUSION: No acute disease. Chad Bajwa MD Foot X-Ray 05/27/16 0000 Signed Impressions: Service Date/Time: Friday, May 27, 2016 20:17 - CONCLUSION: Disuse osteopenia following midfoot amputation. Chad Bajwa MD Objective Remarks GENERAL: This is a well-nourished, well-developed patient, in no apparent distress. SKIN: Warm and dry. HEAD: Atraumatic. Normocephalic. EYES: Pupils equal round and reactive. ENT: Nose without bleeding, purulent drainage or septal hematoma. Airway patent. NECK: Trachea midline. No JVD CARDIOVASCULAR: Regular rate and rhythm without murmurs, gallops, or rubs. RESPIRATORY: Clear to auscultation. Breath sounds equal bilaterally. No wheezes , rales, or rhonchi. GASTROINTESTINAL: Abdomen soft, non-tender, nondistended. No hepato-splenomegaly , or palpable masses. No guarding. MUSCULOSKELETAL: Left BKA. Right foot bandaged. No lower extremity edema. NEUROLOGICAL: Awake and alert. Motor and sensory grossly within normal limits. Normal speech. PSYCH: Mood and affect appropriate. Medications and IVs Current Medications Medications (Trade) Dose Ordered Sig/Maribell Route Start Time Stop Time Status Last Admin (NS Flush) 2 ml UNSCH PRN FLUSH 05/27/16 23:30 (NS Flush) 2 ml BID FLUSH 05/28/16 09:00 05/28/16 21:00 (Heparin Inj) 5,000 units Q8H SQ 05/28/16 09:00 05/28/16 18:07 (Narcan Inj) 0.4 mg UNSCH PRN IV 05/27/16 23:30 (D50w (Vial) Inj) 25 ml UNSCH PRN IV PUSH 05/27/16 23:30 Glucagon 1 mg 1 mg UNSCH PRN OTHER 05/27/16 23:30 Piperacillin Sod/ Tazobactam Sod 50 ml @ 100 mls/hr Q8H IV 05/28/16 08:00 05/28/16 23:24 (NS 1000 ml Inj) 1,000 ml @ 0 mls/hr Q0M PRN IV 05/28/16 09:34 Heparin Sodium (Porcine) 8000 units 8,000 units UNSCH PRN IVF 05/28/16 09:45 Sodium Chloride 1,000 ml @ 200 mls/hr Q5H PRN IV 05/28/16 09:34 (NS 1000 ml Inj) 1,000 ml @ 0 mls/hr Q0M PRN IV 05/28/16 09:34 (Mannitol Inj) 12.5 gm UNSCH PRN IV 05/28/16 09:45 (Albumin 25% Inj) 25 gm UNSCH PRN IV 05/28/16 09:45 (NS Flush) 5 ml UNSCH PRN IVF 05/28/16 09:45 (Heparin Inj) UNSCH PRN .XX 05/28/16 09:45 (Gentamicin (Dialysis) Inj) 20 mg UNSCH PRN IV 05/28/16 09:45 (Zofran Inj) 4 mg UNSCH PRN IV 05/28/16 09:45 (Tylenol) 650 mg UNSCH PRN PO 05/28/16 09:45 (Benadryl) 25 mg UNSCH PRN PO 05/28/16 09:45 (Nitrostat Sl) 0.4 mg UNSCH PRN SL 05/28/16 09:45 (Catapres) 0.1 mg UNSCH PRN PO 05/28/16 09:45 (Epogen Inj) 10,000 units UNSCH PRN IV 05/28/16 09:45 (Gelfoam 12 Mm/7 Mm Top) 1 foam UNSCH PRN TOP 05/28/16 09:45 (Phoslo) 1,334 mg TID PO 05/28/16 18:00 05/28/16 18:06 A/P Problem List: (1) Wound infection ICD Code: T14.8 Status: Acute (2) DM2 (diabetes mellitus, type 2) ICD Code: E11.9 Status: Chronic (3) End-stage renal disease needing dialysis ICD Code: N18.6 Status: Chronic Assessment and Plan 56-year-old male with a history of diabetes, hypertension, end-stage renal disease, PVD and CAD presented with: Chills Pt had an episode of chills and has leukocytosis. Noted to have a lower extremity wound of the right foot. Foot x-ray shows diffuse osteopenia following midfoot amputation. Appreciate podiatry consult. Wound does not appear to be infected. CXR unremarkable. He does have a Vas-cath in place since July. Symptoms have resolved. - Wound and blood culture with no growth to date. - continue Zosyn IV, vanco dosing per nephrology. - consider ID consult. Diabetes type 2 Glucose well controlled. - Accu-Cheks AC/HS w/SSI. ESRD, on dialysis Nephrology consult appreciated. - Dialysis per nephrology. - Follow metabolic panel. DVT prophylaxis: Heparin. Discharge Planning Possible discharge later today or tomorrow. Problem Qualifiers (1) DM2 (diabetes mellitus, type 2): Qualified Code: E11.42 - Type 2 diabetes mellitus with diabetic polyneuropathy , with long-term current use of insulin Juan Luis Cortez DO May 29, 2016 08:37
--- NOTE | 2016-05-29 08:52 | HHI.NPPN ---
Subjective Renal Failure: Chronic, End Stage Renal Disease Interval History Seen during dialysis. Reporting constipation. Eating well. No pain. (Breanne Brown) Review of Systems Skin Skin: Ulcers (Breanne Brown) Objective Data Data 05/28/16 05/29/16 19:00 07:00 Intake Total 240 ml Balance 240 ml Intake Oral 240 ml # Voids 1 Vital Signs Date Time Temp Pulse Resp B/P Pulse Ox O2 Delivery O2 Flow Rate FiO2 05/29/16 08:00 97.6 75 18 118/65 98 05/29/16 06:56 21 05/29/16 04:13 98.6 74 20 113/55 97 05/29/16 00:50 97.8 73 20 100/55 97 05/28/16 19:36 97.9 84 20 105/51 97 05/28/16 15:21 98.1 73 18 106/59 97 05/28/16 13:00 74 16 100/52 96 Room Air 05/28/16 12:00 68 14 102/51 97 Room Air 05/28/16 11:00 80 22 113/56 98 Room Air 05/28/16 10:52 98 21 05/28/16 10:00 68 19 109/54 98 Room Air 05/28/16 09:00 68 16 05/28/16 09:00 78 22 115/56 96 Room Air (Breanne Brown) -: 05/28/16 0439 05/28/16 0439 Imaging Last 72 hours Impressions Chest X-Ray 05/27/16 1933 Signed Impressions: Service Date/Time: Friday, May 27, 2016 20:15 - CONCLUSION: No acute disease. Chad Bajwa MD Foot X-Ray 05/27/16 0000 Signed Impressions: Service Date/Time: Friday, May 27, 2016 20:17 - CONCLUSION: Disuse osteopenia following midfoot amputation. Chad Bajwa MD Tubes & Lines: Perma-Cath (Breanne Brown) Physical Exam General Appearance: Well Developed, Well Nourished, No Acute Distress (Breanne Brown) Eyes Eye Exam: Pupils Equal (Breanne Brown) Throat Throat Exam: Oral Mucosa Perry & Moist (Breanne Brown) Neck Neck Exam: Neck Supple (Breanne Brown) Pulmonary Resp Exam: Clear Bilaterally, Breath Sounds Equal (Breanne Brown) Cardiology CV Exam: Regular, Normal Sinus Rhythm (Breanne Brown) Gastrointestinal/Abdomen GI Exam: Soft, Non-Tender GI Remarks LBM 3 days ago (Breanne Brown) Musculoskeletal MS Exam: Joints Intact, Good Strength (Breanne Brown) Integumentary Skin Exam: Clear, Warm, Dry (Breanne Brown) Extremeties Extremities Exam: No Edema Extremeties Remarks left BKA , right midfoot amputation right arm AVF, + thrill/bruit (Breanne Brown) Neurologic Neuro Exam: Alert, Awake, Oriented, Speech Clear, Moving All Extremities ( Breanne Brown) Psychiatric Psych Exam: Appropriate Responses (Breanne Brown) Assessment/Plan Discussed Condition With: Patient Assessment Summary: Diabetes Mellitus, End Stage Renal Disease Problem List: (1) ESRD (end stage renal disease) on dialysis Plan: seen during dialysis today on a 3K, 400 BFR, goal 3L continue T-Th-Sat dialysis, can resume outpatient arrangements after discharge using permcath for dialysis intermittent metabolic profile while admitted no IVF no dietary protein restriction (2) Wound infection Plan: wound cx negative to date, blood cx also negative he does have leukocytosis , on IV zosyn podiatry following (3) DM2 (diabetes mellitus, type 2) Plan: maintain blood sugar between 140-180 mg/dL , currently acceptable (4) Anemia Plan: epogen with dialysis (5) Metabolic bone disease Plan: continue Phoslo, evaluate phosphorus level intermittently (Breanne Brown) Plan patient was seen and examined during dialysis. On 3K, UF goal is 3 liters. Serum phosphorus is acceptable. We will continue to follow from dialysis standpoint. Dr. Membreno will be back on Thursday. (Juan Pablo Feng MD) Problem Qualifiers (1) DM2 (diabetes mellitus, type 2): Qualified Code: E11.42 - Type 2 diabetes mellitus with diabetic polyneuropathy , with long-term current use of insulin Breanne Brown May 29, 2016 08:52 Juan Pablo Feng MD May 29, 2016 11:02
[2016-05-29 09:27] LABS: MEAN CELL VOLUME 85.2 FL (80.0-100.0); MEAN CORPUSCULAR HEMOGLOBIN 27.8 PG (27.0-34.0); MEAN CORPUSCULAR HGB CONC 32.6 % (32.0-36.0); PLATELET COUNT 184 TH/MM3 (150-450); RED BLOOD COUNT 3.52 MIL/MM3 (4.50-5.90); RED CELL DISTRIBUTION WIDTH 17.8 % (11.6-17.2); REVIEW FLAG FINAL; WHITE BLOOD COUNT 4.6 TH/MM3 (4.0-11.0)
[2016-05-29 09:58] LABS: BICARBONATE 26.4 MEQ/L (21.0-32.0); POTASSIUM 4.2 MEQ/L (3.5-5.1)
[2016-05-29] MEDS: ASPIRIN 325 MG TAB PO SCH (12:41)
[2016-05-29] MEDS: DOCUSATE SODIUM 100 MG CAP PO SCH ×2 (12:41→22:55)
[2016-05-29] MEDS: CALCIUM ACETATE 667 MG CAP PO SCH ×3 (12:41→17:09)
[2016-05-29] MEDS: PIPERACIL-TAZO 3.375 GM PREMIX 50 ML IV SCH ×2 (12:42→17:03)
[2016-05-29] MEDS: SODIUM CHLORIDE 0.9% FLUSH 5 ML FLUSH FLUSH SCH ×2 (12:42→21:00)
[2016-05-29] MEDS: SENNOSIDES 8.6 MG TAB PO SCH (13:09)
[2016-05-29] MEDS: FUROSEMIDE 40 MG TAB PO SCH (13:09)
[2016-05-29] MEDS ORDERED: ATORVASTATIN 10 MG TAB PO SCH (21:00)
[2016-05-30] MEDS: PIPERACIL-TAZO 3.375 GM PREMIX 50 ML IV SCH ×2 (00:05→08:37)
[2016-05-30] MEDS: HEPARIN SODIUM - SQ 10,000 UNITS/ML VIAL SQ SCH ×2 (01:00→08:38)
[2016-05-30 04:30] VITALS: BP 105/65; PULSE 90; RESP 18; TEMP 98.2; O2SAT 98
[2016-05-30] MEDS: INSULIN ASPART SUPPLEMENTAL SCALE SQ SCH (06:36)
[2016-05-30 07:43] LABS: HEMATOCRIT 33.6 % (39.0-51.0); MEAN CORPUSCULAR HEMOGLOBIN 27.7 PG (27.0-34.0); MEAN CORPUSCULAR HGB CONC 32.5 % (32.0-36.0); PLATELET COUNT 188 TH/MM3 (150-450); RED BLOOD COUNT 3.95 MIL/MM3 (4.50-5.90); RED CELL DISTRIBUTION WIDTH 17.9 % (11.6-17.2); REVIEW FLAG FINAL; WHITE BLOOD COUNT 5.4 TH/MM3 (4.0-11.0)
[2016-05-30 08:20] LABS: BICARBONATE 29.1 MEQ/L (21.0-32.0); POTASSIUM 4.7 MEQ/L (3.5-5.1)
[2016-05-30] MEDS: DOCUSATE SODIUM 100 MG CAP PO SCH (08:37)
[2016-05-30] MEDS: ASPIRIN 325 MG TAB PO SCH (08:37)
[2016-05-30] MEDS: FUROSEMIDE 40 MG TAB PO SCH (08:37)
[2016-05-30] MEDS: CALCIUM ACETATE 667 MG CAP PO SCH (08:37)
[2016-05-30] MEDS: SENNOSIDES 8.6 MG TAB PO SCH (08:38)
--- NOTE | 2016-05-30 08:39 | HHI.DCPOC ---
Discharge Care Plan Diagnosis: (1) Diabetic foot ulcer (2) End-stage renal disease needing dialysis Goals to Promote Your Health * To prevent worsening of your condition and complications * To maintain your health at the optimal level Directions to Meet Your Goals Take your medications as prescribed Follow your dietary instruction Follow activity as directed Keep your appointments as scheduled Take your immunizations and boosters as scheduled If your symptoms worsen call your PCP, if no PCP go to Urgent Care Center or Emergency Room Smoking is Dangerous to Your Health. Avoid second hand smoke Call the 24-hour hour crisis hotline for domestic abuse at Juan Luis Cortez DO May 30, 2016 08:39
[2016-05-30] MEDS: SODIUM CHLORIDE 0.9% FLUSH 5 ML FLUSH FLUSH SCH (08:40)
--- NOTE | 2016-05-30 08:44 | HHI.DS ---
Discharge Summary Admission Date May 27, 2016 at 23:28 Discharge Date: May 30, 2016 Admitting Diagnosis right foot infection (1) Wound infection ICD Code: T14.8 (2) DM2 (diabetes mellitus, type 2) ICD Code: E11.9 (3) End-stage renal disease needing dialysis ICD Code: N18.6 Diagnosis: Principal Procedures None. Brief History - From Admission History taken from patient and ED physician. 56-year-old male with a history of diabetes, hypertension, end-stage renal disease, PVD and CAD was sent to the ED from Dialysis for evaluation of a right foot wound infection. Patient states he was at dialysis today and he began to have fevers and chills. He has been seeing a wound care nurse for the wound on top on his right foot from a partial foot amputation. He is now having foul smelling drainage from the top of the right foot, cultures have been sent. He denies any chest pain, sob, nausea or vomiting. CBC/BMP: 05/30/16 0650 05/30/16 0650 Significant Findings Laboratory Tests Test 05/27/16 05/27/16 05/28/16 05/29/16 19:55 22:15 04:39 08:48 Prothrombin Time 12.0 SEC (9.8-11.6) Activated Partial 31.2 SEC Thromboplast Time (24.3-30.1) Sodium Level 134 MEQ/L 135 MEQ/L 135 MEQ/L (136-145) (136-145) (136-145) Chloride Level 95 MEQ/L 97 MEQ/L (98-107) (98-107) Blood Urea Nitrogen 38 MG/DL (7-18) 49 MG/DL (7-18) 69 MG/DL (7-18) Creatinine 7.26 MG/DL 8.22 MG/DL 10.05 MG/DL (0.60-1.30) (0.60-1.30) (0.60-1.30) Estimat Glomerular Filtration 9 ML/MIN (>89) 8 ML/MIN (>89) 6 ML/MIN (>89) Rate Random Glucose 297 MG/DL 133 MG/DL (74-106) (74-106) Lactic Acid Level 3.8 mmol/L 3.9 mmol/L (0.4-2.0) (0.4-2.0) Aspartate Amino Transf 7 U/L (15-37) (AST/SGOT) Alkaline Phosphatase 145 U/L (45-117) Troponin I 0.07 NG/ML (0.02-0.05) Total Protein 8.6 GM/DL (6.4-8.2) Albumin 3.1 GM/DL 2.5 GM/DL (3.4-5.0) (3.4-5.0) Red Blood Count 4.22 MIL/MM3 3.96 MIL/MM3 3.52 MIL/MM3 (4.50-5.90) (4.50-5.90) (4.50-5.90) Hemoglobin 11.8 GM/DL 10.7 GM/DL 9.8 GM/DL (13.0-17.0) (13.0-17.0) (13.0-17.0) Hematocrit 35.7 % 34.0 % 30.0 % (39.0-51.0) (39.0-51.0) (39.0-51.0) Red Cell Distribution Width 17.9 % 18.3 % 17.8 % (11.6-17.2) (11.6-17.2) (11.6-17.2) Neutrophils (%) (Auto) 88.7 % 73.1 % (16.0-70.0) (16.0-70.0) Lymphocytes (%) (Auto) 5.9 % (9.0-44.0) Neutrophils # (Auto) 8.9 TH/MM3 8.6 TH/MM3 (1.8-7.7) (1.8-7.7) Lymphocytes # (Auto) 0.6 TH/MM3 (1.0-4.8) White Blood Count 11.8 TH/MM3 (4.0-11.0) Mean Corpuscular Hemoglobin 31.6 % Concent (32.0-36.0) Monocytes (%) (Auto) 9.8 % (0.0-8.0) Monocytes # (Auto) 1.2 TH/MM3 (0-0.9) Test 05/30/16 06:50 Red Blood Count 3.95 MIL/MM3 (4.50-5.90) Hemoglobin 10.9 GM/DL (13.0-17.0) Hematocrit 33.6 % (39.0-51.0) Red Cell Distribution Width 17.9 % (11.6-17.2) Sodium Level 134 MEQ/L (136-145) Chloride Level 92 MEQ/L (98-107) Blood Urea Nitrogen 57 MG/DL (7-18) Creatinine 9.30 MG/DL (0.60-1.30) Estimat Glomerular Filtration 7 ML/MIN (>89) Rate Imaging Last Impressions Chest X-Ray 05/27/16 1933 Signed Impressions: Service Date/Time: Friday, May 27, 2016 20:15 - CONCLUSION: No acute disease. Chad Bajwa MD Foot X-Ray 05/27/16 0000 Signed Impressions: Service Date/Time: Friday, May 27, 2016 20:17 - CONCLUSION: Disuse osteopenia following midfoot amputation. Chad Bajwa MD PE at Discharge GENERAL: This is a well-nourished, well-developed patient, in no apparent distress. SKIN: Warm and dry. HEAD: Atraumatic. Normocephalic. EYES: Pupils equal round and reactive. ENT: Nose without bleeding, purulent drainage or septal hematoma. Airway patent. NECK: Trachea midline. No JVD CARDIOVASCULAR: Regular rate and rhythm without murmurs, gallops, or rubs. RESPIRATORY: Clear to auscultation. Breath sounds equal bilaterally. No wheezes , rales, or rhonchi. GASTROINTESTINAL: Abdomen soft, non-tender, nondistended. No hepato-splenomegaly , or palpable masses. No guarding. MUSCULOSKELETAL: Left BKA. Right foot bandaged. No lower extremity edema. NEUROLOGICAL: Awake and alert. Motor and sensory grossly within normal limits. Normal speech. PSYCH: Mood and affect appropriate. Pt update on day of discharge The pt was feeling well and had no acute complaints. He said dialysis went great. He denied pain or discomfort. He wanted to go home. Discussed with nursing. Hospital Course Chills/ chronic foot wound Pt had an episode of chills and had leukocytosis. Noted to have a lower extremity wound of the right foot. Foot x-ray shows diffuse osteopenia following midfoot amputation. Podiatry was consulted and determined foot wound not to be infected. The pt was recommended to moisturize the area twice daily. CXR unremarkable. No further chills. Wound and blood culture with no growth to date. Vancomycin and Zosyn were discontinued. The pt will follow up with podiatry as an outpt. Diabetes type 2 Glucose well controlled. The pt will resume his home regimen upon discharge. ESRD, on dialysis Nephrology was consulted and dialysis was resumed. He will follow up with nephrology as an outpt. Pt Condition on Discharge: Stable Discharge Disposition: Discharge Home Discharge Time: <= 30 minutes Discharge Instructions DIET: Follow Instructions for: Renal Failure Diet Activities you can perform: Weight Bearing as Ranjan Follow up Referrals: Nephrology - 1 Week PCP Follow-up - 1 Week Podiatry - [address] George Continued Medications: Aspirin (Aspirin) 325 Mg Tab 325 MG PO DAILY Ref 0 TAB Atorvastatin (Atorvastatin) 10 Mg Tab 10 MG PO HS Cholesterol Management Ref 0 TAB Bethanechol (Urecholine) 25 Mg Tab 25 MG PO Q8HR Urinary Symptom Managemen Ref 0 TAB Calcium Acetate (Phosphate Bin (Calcium Acetate) 667 Mg Cap 667 MG TID Cefazolin Inj (Cefazolin Inj) 2 Gm/100 Ml Bagp GM IV DAILY PRN WITH DIALYSIS Epoetin Inj (Epogen Inj) 10,000 Unit/Ml Inj [id number] IV DIALYSIS Furosemide (Furosemide) 40 Mg Tab 40 MG PO DAILY Ref 0 TAB Insulin Human Regular Inj (Novolin R Inj) 1,000 Unit/10 Ml Vial 1-9 UNITS SQ TIDACHS Max dose at bedtime:( )units; sugars less than 70,(0) units ; sugars 150-199,(1)unit; sugars 200-249,(3)units; sugars 250-299,(5) units; sugars 300-349,(7)units; sugars greater than 349,(9)units Blood Sugar Management #10 Ref 0 ML Juan Luis Cortez DO May 30, 2016 08:44
[2016-05-30 09:14] VITALS: BP 116/64; PULSE 70; RESP 18; TEMP 97.8; O2SAT 99
--- NOTE | 2016-05-30 09:53 | HHI.NPPN ---
Subjective Renal Failure: Chronic, End Stage Renal Disease Interval History Dialyzed yesterday. No acute concerns. (Breanne Brown) Review of Systems Skin Skin: Ulcers (Breanne Brown) Objective Data Data 05/29/16 05/30/16 19:00 07:00 Intake Total 442 ml 240 ml Output Total 3450 ml Balance -3008 ml 240 ml Intake Oral 240 ml 240 ml IV Total 202 ml Output Urine Total 450 ml Hemodialysis 3000 ml # Voids 3 # Bowel Movements 1 0 Vital Signs Date Time Temp Pulse Resp B/P Pulse Ox O2 Delivery O2 Flow Rate FiO2 05/30/16 09:14 97.8 70 18 116/64 99 05/30/16 04:30 98.2 90 18 105/65 98 05/29/16 20:05 96.9 86 18 108/63 99 05/29/16 19:18 97 05/29/16 16:06 96.7 79 22 98/58 96 05/29/16 12:00 97.1 74 18 121/68 99 (Breanne Brown) -: 05/30/16 0650 05/30/16 0650 Tubes & Lines: Perma-Cath (Breanne Brown) Physical Exam General Appearance: Well Developed, Well Nourished, No Acute Distress (Breanne Brown) Eyes Eye Exam: Pupils Equal (Breanne Brown) Throat Throat Exam: Oral Mucosa [place] & Moist (Breanne Brown) Neck Neck Exam: Neck Supple (Breanne Brown) Pulmonary Resp Exam: Clear Bilaterally, Breath Sounds Equal (Breanne Brown) Cardiology CV Exam: Regular, Normal Sinus Rhythm (Breanne Brown) Gastrointestinal/Abdomen GI Exam: Soft, Non-Tender GI Remarks LBM 3 days ago (Breanne Brown) Musculoskeletal MS Exam: Joints Intact, Good Strength (rBeanne Brown) Integumentary Skin Exam: Clear, Warm, Dry (Breanne Brown) Extremeties Extremities Exam: No Edema Extremeties Remarks left BKA , right midfoot amputation right arm AVF, + thrill/bruit (Breanne Brown) Neurologic Neuro Exam: Alert, Awake, Oriented, Speech Clear, Moving All Extremities ( Breanne Brown) Psychiatric Psych Exam: Appropriate Responses (Breanne Brown) Assessment/Plan Discussed Condition With: Patient Assessment Summary: Diabetes Mellitus, End Stage Renal Disease Problem List: (1) ESRD (end stage renal disease) on dialysis Plan: dailysis with 3 liter UF yesterday continue T-Th-Sat dialysis, can resume outpatient arrangements after discharge using permcath for dialysis intermittent metabolic profile while admitted no IVF no dietary protein restriction (2) Wound infection Plan: wound cx negative to date, blood cx also negative he does have leukocytosis , on IV zosyn podiatry following (3) DM2 (diabetes mellitus, type 2) Plan: maintain blood sugar between 140-180 mg/dL , currently acceptable (4) Anemia Plan: epogen with dialysis (5) Metabolic bone disease Plan: continue Phoslo, evaluate phosphorus level intermittently Plan We will continue to follow from dialysis standpoint. Dr. Membreno will be back on Thursday. (Breanne Brown) Plan patient was seen and examined. Agree with above assessment and plan. (Juan Pablo Feng MD) Problem Qualifiers (1) DM2 (diabetes mellitus, type 2): Qualified Code: E11.42 - Type 2 diabetes mellitus with diabetic polyneuropathy , with long-term current use of insulin Breanne Brown May 30, 2016 09:53 Juan Pablo Feng MD May 30, 2016 16:01
== END 2016-05-30 12:01 | disposition home or self-care (01) | DRG 604 ==
LOC: NEPC 17:16 → OBSVTOIN 23:28 → NEDA 23:28 → NEDH 05-28 04:11 → NEPHCDU 05-28 15:16
PROVIDERS: ADMIT Hospitalist; ATTEND Hospitalist
PROC: 5A1D00Z (ICD-10-PCS; principal; 2016-05-27)
DX: S91.301A Unspecified open wound, right foot, initial encounter (principal); N18.6 End stage renal disease; I12.0 Hypertensive chronic kidney disease with stage 5 chronic kidney disease or end stage renal disease; E88.89 Other specified metabolic disorders; E11.22 Type 2 diabetes mellitus with diabetic chronic kidney disease; E11.42 Type 2 diabetes mellitus with diabetic polyneuropathy; Z79.4 Long term (current) use of insulin; Z87.891 Personal history of nicotine dependence; Z99.2 Dependence on renal dialysis; D64.9 Anemia, unspecified; I73.9 Peripheral vascular disease, unspecified; I25.10 Atherosclerotic heart disease of native coronary artery without angina pectoris; I45.10 Unspecified right bundle-branch block; K59.03 Drug induced constipation; M85.80 Other specified disorders of bone density and structure, unspecified site; Z89.512 Acquired absence of left leg below knee; Z96.1 Presence of intraocular lens
CPT/HCPCS: 71010; 73630; 80048; 80053; 80069; 82550; 82948; 83605; 83735; 84484; 85025; 85027; 85610; 85730; 86403; 87040; 87070; 87205; 90935; 93005; 96365; 96374; 96375; J1580; J1644; J1940; J2543; J3370; J7030; J7050; Q4081

== ENCOUNTER → 2016-06-20 | Day surgery (SDC) | payer OTHER ==
[~2016-06-20] VITALS: Ht 193 cm; Wt 92.2 kg
[~2016-06-20] MED LIST changes: +ACETAMINOPHEN/HYDROcodone 325 MG/5 MG TAB PO PRN; -AMLO10TA2 PO; +BUPIVACAINE/EPINEPHRINE 0.25% PF 30 ML VIAL ONE; -CARV3.12 PO; -COZA50TA PO; +DO NOT ADM ANY ANTICOAGULANT DRUGS XX PRN; +GELFOAM SIZE 100 ONE; +HEPARIN SODIUM - IV 10,000 UNITS/10 ML VIAL ONE; +HEPARIN SODIUM - SQ 10,000 UNITS/ML VIAL ONE; +INSULIN HUMAN REGULAR 1,000 UNITS/10 ML VIAL SQ PRN; +KETAMINE HCL 500 MG/5 ML VIAL ONE; +LACTATED RINGER'S 1000 ML IV SCH; +MAGNESIUM SULFATE 1 GM/100 ML IV PRN; +METOPROLOL TARTRATE 25 MG TAB PO PRN; +MIDAZOLAM HCL 2 MG/2 ML VIAL ONE; +MORPHINE SULFATE 4 MG/ML INJ IV PRN; +ONDANSETRON HCL 4 MG/2 ML VIAL IV PUSH ONE; +ONDANSETRON HCL 4 MG/2 ML VIAL IV PUSH PRN; +PHENYLEPH/NS 1000 MCG/10 ML SYR IV ONE; +POTASSIUM CHLOR 20 MEQ 100 ML x 2 BAGS IV PRN; +POTASSIUM CHLOR 20 MEQ/100 ML x 1 BAG IV PRN; +POTASSIUM PHOSPHATE 21 MMOL/NS 250 ML IV PRN; +PROPOFOL 200 MG/20 ML AMP IV ONE; +PROTAMINE SULFATE 50 MG/5 ML VIAL ONE; +SODIUM CHLOR 0.9% 250 ML INJ 250 ML IV ONE; +SODIUM CHLORID 0.9% 500 ML IV SCH; +SODIUM CHLORIDE 0.9% FLUSH 5 ML FLUSH IV FLUSH PRN; +SODIUM CHLORIDE 0.9% FLUSH 5 ML FLUSH IV FLUSH SCH; +THROMBIN (TOPICAL) 5,000 UNIT VIAL ONE; +VANCOMYCIN HCL 1000 MG VIAL ONE
--- NOTE | 2016-06-20 06:51 | RADRPT ---
EXAM DATE/TIME: 06/20/2016 06:30 [facility] COMPARISON: CHEST SINGLE AP, May 27, 2016, 20:15. INDICATIONS : Evaluate for pneumonia, pneumothorax, and communicable disease. Pre op for right basilic vein transp osition. MEDICAL HISTORY : Hypertension. SURGICAL HISTORY : Vas-cath. ENCOUNTER: Initial ACUITY: 1 day PAIN SCORE: 0/10 LOCATION: Bilateral chest FINDINGS: A single view of the chest demonstrates the lungs to be symmetrically aerated without evidence of mas s, infiltrate or effusion. The cardiomediastinal contours are unremarkable. Osseous structures are intact. Right sided dialysis catheter is noted and unchanged. CONCLUSION: Clear lungs. Anselmo Liao MD on June 20, 2016 at 6:49 Board Certified Radiologist. This report was verified electronically.
[2016-06-20 07:00] VITALS: BP 108/73; PULSE 78; RESP 16; TEMP 98.8; O2SAT 99
[2016-06-20 07:03] LABS: AUTOMATED NEUTROPHIL # 4.1 TH/MM3 (1.8-7.7); BASOPHIL # 0.1 TH/MM3 (0-0.2); BASOPHIL % 1.1 % (0.0-2.0); EOSINOPHIL # 0.1 TH/MM3 (0-0.4); EOSINOPHIL % 1.2 % (0.0-4.0); HEMATOCRIT 39.1 % (39.0-51.0); HEMO FLAGS DIFF FINAL; LYMPH % 33.5 % (9.0-44.0); LYMPHOCYTE # 2.4 TH/MM3 (1.0-4.8); MEAN CELL VOLUME 88.6 FL (80.0-100.0); MEAN CORPUSCULAR HGB CONC 31.6 % (32.0-36.0); MONO % 7.6 % (0.0-8.0); NEUT % 56.6 % (16.0-70.0); PLATELET COUNT 310 TH/MM3 (150-450); RED BLOOD COUNT 4.42 MIL/MM3 (4.50-5.90); RED CELL DISTRIBUTION WIDTH 20.1 % (11.6-17.2); WHITE BLOOD COUNT 7.3 TH/MM3 (4.0-11.0)
[2016-06-20 07:22] LABS: BICARBONATE 23.9 MEQ/L (21.0-32.0)
[2016-06-20 07:26] LABS: PROTHROMBIN TIME - PATIENT 11.5 SEC (9.8-11.6)
[2016-06-20 11:54] VITALS: BP 156/89; PULSE 82; RESP 16; TEMP 97.9; O2SAT 100
--- NOTE | 2016-06-21 07:17 | MP ---
cc: KRISTYN JOHN DO DATE OF SURGERY: 06/20/2016 PREOPERATIVE DIAGNOSIS: End stage renal disease. POSTOPERATIVE DIAGNOSIS: End-stage renal disease. OPERATION: Right upper extremity basilic vein transposition. IV FLUIDS/ANESTHESIA: Anesthesia is LMA with 30 cc of 0.25% Marcaine with epinephrine. FLUIDS: 300 cc crystalloid ESTIMATED BLOOD LOSS Minimal URINE OUTPUT Not calculated. COMPLICATIONS None. DISPOSITION To PACU PROCEDURE The patient's right upper extremity was prepped and draped in sterile fashion after being under MAC anesthesia. We converted to LMA. This patients right upper extremity was moving. The patient was given 1 gram of IV vancomycin for a history of multiple tunnel catheters for perioperative IV antibiotics. We made a linear incision along the medial aspect of the right upper extremity, up above the antecubital fossa. I used scalpel and electrocautery I dissected down with fine Metzenbaum scissors localizing the basilic vein and the basilic nerve. I removed the periadventitial tissue off the basilic vein and tied off side branches with the 2-0 and 3-0 silk ties as well as small medium clips as needed. I marked the vein anteriorly, I then heparinized the patient with 3000 units of heparin. I did use a running 5-0 Prolene and a profunda clamp in order to divide and ligate a large branch as it approached the axilla the basilic vein. I then divided the basilic vein just above the antecubital fossa placed profunda clamps around it and on both sides, and then I performed the anastomosis after I removed the vein from underneath the basilic nerve with a 5-0 Prolene on media 1. There was a good thrill after performing the anastomosis and it should be noted that there was good signal on the right radial artery distribution as well. I used a small piece of Surgicel to help out with hemostasis and electrocautery. I then closed in layers with 2-0 interrupted Vicryl's absorbable sutures in order to raise vein and then a 3-0 interrupted deep dermal sutures of 4-0 Monocryl with Dermabond I placed a Kerlix roll dressing around the arm and then placed an arm in a sling. DO Gloria Waddell /10:07 AM /7:04 AM
== END | disposition home or self-care (01) ==
LOC: HCVO 06:01
PROVIDERS: ATTEND Surgery
DX: Z49.01 Encounter for fitting and adjustment of extracorporeal dialysis catheter (principal); E11.22 Type 2 diabetes mellitus with diabetic chronic kidney disease; N18.6 End stage renal disease; Z99.2 Dependence on renal dialysis
CPT/HCPCS: 01844; 36819; 71010; 76937; 80048; 85610; 86850; 86900; 86901; J1644; J2250; J2370; J2405; J2720; J3010; J3370; J7040; J7050; 85025

== ENCOUNTER 2016-06-28 00:31 | Emergency (ER) | payer OTHER ==
[~2016-06-28] VITALS: Ht 175.3 cm; Wt 75.0 kg
[~2016-06-28 00:31] MED LIST changes: -ACETAMINOPHEN/HYDROcodone 325 MG/5 MG TAB PO PRN; -BUPIVACAINE/EPINEPHRINE 0.25% PF 30 ML VIAL ONE; -DO NOT ADM ANY ANTICOAGULANT DRUGS XX PRN; -GELFOAM SIZE 100 ONE; -HEPARIN SODIUM - IV 10,000 UNITS/10 ML VIAL ONE; -HEPARIN SODIUM - SQ 10,000 UNITS/ML VIAL ONE; -INSULIN HUMAN REGULAR 1,000 UNITS/10 ML VIAL SQ PRN; -KETAMINE HCL 500 MG/5 ML VIAL ONE; -LACTATED RINGER'S 1000 ML IV SCH; -MAGNESIUM SULFATE 1 GM/100 ML IV PRN; -METOPROLOL TARTRATE 25 MG TAB PO PRN; -MIDAZOLAM HCL 2 MG/2 ML VIAL ONE; -MORPHINE SULFATE 4 MG/ML INJ IV PRN; -ONDANSETRON HCL 4 MG/2 ML VIAL IV PUSH ONE; -ONDANSETRON HCL 4 MG/2 ML VIAL IV PUSH PRN; -PHENYLEPH/NS 1000 MCG/10 ML SYR IV ONE; -POTASSIUM CHLOR 20 MEQ 100 ML x 2 BAGS IV PRN; -POTASSIUM CHLOR 20 MEQ/100 ML x 1 BAG IV PRN; -POTASSIUM PHOSPHATE 21 MMOL/NS 250 ML IV PRN; -PROPOFOL 200 MG/20 ML AMP IV ONE; -PROTAMINE SULFATE 50 MG/5 ML VIAL ONE; -SODIUM CHLOR 0.9% 250 ML INJ 250 ML IV ONE; -SODIUM CHLORID 0.9% 500 ML IV SCH; -SODIUM CHLORIDE 0.9% FLUSH 5 ML FLUSH IV FLUSH PRN; -SODIUM CHLORIDE 0.9% FLUSH 5 ML FLUSH IV FLUSH SCH; -THROMBIN (TOPICAL) 5,000 UNIT VIAL ONE; -VANCOMYCIN HCL 1000 MG VIAL ONE
--- NOTE | 2016-06-28 00:46 | PD ---
HPI Chief Complaint: cardiac arrest Time Seen by Provider: 00:43 Travel History International Travel<30 days: No Contact w/Intl Traveler<30days: No History of Present Illness HPI Patient is a 56-year-old male with history of renal failure bilateral lower extremity amputations the right at the foot the left at the BKA level presents in cardiac arrest. According to EMS he was a witnessed arrest at home just after midnight tonight he was worked for just a few minutes on scene and had Ross with pulses for only about 45 seconds. Initial rhythm on scene was ventricular fibrillation which was coarse. He was different related 3 times in the field given epinephrine as well as bicarbonate and amiodarone 300 mg and transported to [facility] after being intubated. PFSH Past Medical History Hx Anticoagulant Therapy: Yes Arthritis: No Asthma: No Autoimmune Disease: No Blood Disorders: No Anxiety: No Depression: No Heart Rhythm Problems: No Cancer: No Cardiovascular Problems: Yes (chf) High Cholesterol: Yes Chemotherapy: No Chest Pain: No Congestive Heart Failure: No COPD: No Cerebrovascular Accident: No Dementia: No Diabetes: Yes Diminished Hearing: No Endocrine: Yes GERD: No Glaucoma: No Genitourinary: No Headaches: Yes Hepatitis: No Hiatal Hernia: No Hypertension: Yes Immune Disorder: No Implanted Vascular Access Dvce: Yes (dialysis port) Kidney Stones: No Musculoskeletal: No Neurologic: No Psychiatric: No Reproductive: No Respiratory: No Immunizations Current: No Migraines: No Myocardial Infarction: No Radiation Therapy: No Renal Failure: No Seizures: No Sickle Cell Disease: No Sleep Apnea: No Thyroid Disease: No Ulcer: No Past Surgical History Abdominal Surgery: No AICD: No Appendectomy: No Arteriovenous Shunt: No Body Medical Devices: r side vac cath in chest Cardiac Surgery: No Cholecystectomy: No Ear Surgery: No Endocrine Surgery: No Eye Surgery: Yes (cataracts) Genitourinary Surgery: No Gynecologic Surgery: No Insulin Pump: No Joint Replacement: No Oral Surgery: No Pacemaker: No Thoracic Surgery: No Other Surgery: Yes (vein reconstruction left leg) Social History Alcohol Use: No Tobacco Use: No Substance Use: No Allergies-Medications (Allergen,Severity, Reaction): Coded Allergies: *MDRO Multi-Drug Resistant Organism (Verified Adverse Reaction, Unknown, ) MRSA PCR Screens NEGATIVE - 08/23/15 and 08/26/15 CLEARED PER INFECTION CONTROL PROTOCOL Uncoded Allergies: Tradjenta (Adverse Reaction, Severe, Burning, 08/30/15) Pt reports that after taking the medication for 2-3 days he developed severe and pain full blisters on both lower legs. Reported Meds & Prescriptions Reported Meds & Active Scripts Active Reported Aspirin 325 Mg Tab 325 Mg PO DAILY Atorvastatin (Atorvastatin Calcium) 10 Mg Tab 10 Mg PO HS Calcium Acetate (Calcium Acetate (Phosphate Bin) 667 Mg Cap 667 Mg TID Cefazolin Inj (Cefazolin Sodium) 2 Gm/100 Ml Bagp Gm IV DAILY PRN Epogen Inj (Epoetin Dorian) 10,000 Unit/Ml Inj 10,000 IV Furosemide 40 Mg Tab 40 Mg PO DAILY Novolin R Inj (Insulin Human Regular) 1,000 Unit/10 Ml Vial 1-9 Units SQ TIDACHS Max dose at bedtime:( )units; sugars less than 70,(0) units; sugars 150-199,(1)unit; sugars 200-249,(3)units; sugars 250-299,(5) units; sugars 300-349,(7)units; sugars greater than 349,(9)units Urecholine (Bethanechol Chloride) 25 Mg Tab 25 Mg PO TID Review of Systems ROS Limitations: Intubated Physical Exam Exam Limitations: Altered Mental Status Narrative GENERAL: apneic pulses intubated. SKIN: Pale and cool, right-sided dialysis catheter subclavian. HEAD: Atraumatic. Normocephalic. EYES: Fixed and dilated. NECK: Trachea midline. No JVD. CARDIOVASCULAR: Pulseless RESPIRATORY: Apneic, bag valve mask in progress intubated. GASTROINTESTINAL: Appears atraumatic MUSCULOSKELETAL: Appears atraumatic. NEUROLOGICAL: GCS 3 MDM Medical Decision Making Medical Screen Exam Complete: Yes Emergency Medical Condition: Yes Differential Diagnosis Hyper kalemia, ACS, AMI, ventricular fibrillation, ventricular tachycardia Narrative Course Patient was roomed in the emergency department, code started just after midnight , had a brief ROSC only for about 45 sec in the field. He received amiodarone 300 mg, epinephrine multiple ampules, bicarbonate 1 amp in the field. On arrival to the emergency department is been down for 20 minutes. Ventricular fibrillation which is course in quality.. He received 3 attempts at defibrillation the field by EMS in additional to the two defibrillations by our team. He was also given an additional 3 A of epi as well as an amp of bicarbonate and calcium chloride. following ACLS protocol for 10 minutes in the emergency department. He has now been down for approximately 30 minutes his chance of meaningful recovery is now 0% time of was called. Please see code sheet for details. Next of kin was notified and reasonably upset. Attempted to contact patient's primary care providers. Diagnosis Primary Impression: Cardiac arrest Disposition: 20 Condition: Sanjeev Carrasco MD Jun 28, 2016 00:46
[2016-06-28] MEDS ORDERED: SODIUM BICARBONATE 8.4% INJ 50 MEQ/50 ML SYR IV ONE (05:00)
[2016-06-28] MEDS ORDERED: EPINEPHrine HCL (1:10,000) 1 MG/10 ML SYRINGE IV ONE (05:00)
[2016-06-28] MEDS ORDERED: CALCIUM CHLORIDE 10% SOLN 1 GRAM/10 ML SYR IV ONE (05:00)
== END 2016-06-28 05:00 | disposition expired ==
LOC: NEPE 00:31
DX: I46.9 Cardiac arrest, cause unspecified (principal); I10 Essential (primary) hypertension; E11.9 Type 2 diabetes mellitus without complications; N18.6 End stage renal disease; I12.0 Hypertensive chronic kidney disease with stage 5 chronic kidney disease or end stage renal disease; I49.01 Ventricular fibrillation; Z89.512 Acquired absence of left leg below knee; Z89.431 Acquired absence of right foot; Z79.4 Long term (current) use of insulin; Z99.2 Dependence on renal dialysis
CPT/HCPCS: 92950; 99285; J0171